=== PATIENT | male | born 1975 | race Caucasian/White ===

== ENCOUNTER 2020-12-14 17:40 | Emergency (ER) | payer OTHER, SELFPAY ==
[2020-12-14 18:00] VITALS: BP 143/85; PULSE 101; RESP 18; TEMP 39; O2SAT 96; BMI 35.2
[2020-12-14 19:51] VITALS: BP 121/68; PULSE 93; RESP 20; O2SAT 94; O2SAT 97
--- NOTE | 2020-12-14 19:58 | XRR_ITS ---
PROCEDURE INFORMATION: Exam: XR Chest Exam date and time: 12/14/2020 7:58 PM Age: 45 years old Clinical indication: Cough and fever; Additional info: Cough fever TECHNIQUE: Imaging protocol: XR of the chest. Views: 1 view. COMPARISON: No relevant prior studies available. FINDINGS: Lungs: Unremarkable. No consolidation. Pleural spaces: Unremarkable. No pleural effusion. No pneumothorax. Heart/Mediastinum: Unremarkable. No cardiomegaly. Bones/joints: Unremarkable. XR/XR chest 1V portable [id number] IMPRESSION: No acute findings.
[2020-12-14 20:27] LABS: Basophils % 0.2 %; Hematocrit 46.6 % (42.0-52.0); Hemoglobin 15.4 g/dL (11.7-16.6); Lymphocytes # 0.9 10^3/uL (0.8-4.8); Lymphocytes % 17.8 %; Mean Corpuscular Hemoglobin 33.1 pg (28.0-34.0); Mean Corpuscular Volume 100.2 fL (80-94); Mean Platelet Volume 10.6 fL (7.4-10.4); Monocytes # 0.4 10^3/uL (0.2-0.9); Monocytes % 8.4 %; Neutrophils # 3.84 10^3/uL (1.8-7.7); Neutrophils % 73.4 %; Nucleated Red Blood Cells % 0 %; Platelet Count 178 10^3/cmm (130-400); Red Blood Count 4.65 10^6/uL (4.1-5.3); White Blood Count 5.2 10^3/uL (4.0-10.0)
[2020-12-14 20:28] VITALS: BP 134/88; PULSE 91; RESP 16; O2SAT 94
[2020-12-14] MEDS: sodium chloride 0.9% 1,000 ML 999 ML IV (20:32)
[2020-12-14] MEDS: acetaminophen 500 mg Tablet 1000 MG PO (20:32)
[2020-12-14 20:34] LABS: Add Urine Microscopic? NO; Charge for UA Resulting for Rev
[2020-12-14 20:36] LABS: Bilirubin Urine Neg (Negative); Blood Urine Neg (Negative); Glucose Urine UA Norm (Normal); Ketones Urine Negative (Negative); Leukocyte Esterase Urine Negative (Negative); Nitrate Urine Negative (Negative); Protein Urine Neg (Negative); Specific Gravity, Urine 1.015 (1.005-1.030); Urine Appearance Clear (CLEAR); Urine Color Yellow (Yellow); Urobilinogen Urine Norm (Negative); pH Urine 5 (5-7)
[2020-12-14 20:42] LABS: Alanine Aminotransferase 36 U/L (0-41); Albumin Level 3.7 g/dL (3.5-5.2); Alkaline Phosphatase 51 IU/L (40-130); Anion Gap 15.9 (5-19); Aspartate Amino Transferase 34 U/L (0-40); Blood Urea Nitrogen 12 mg/dL (6-20); C Reactive Protein 11.6 mg/L (0.0-4.9); Calcium 8.6 mg/dL (8.5-10.5); Carbon Dioxide 23 mmol/L (22-29); Chloride 103 mmol/L (98-107); Globulin 3.4 g/dL (1.3-4.6); Glomerular Filtration Rate 80.4 mL/min (90-130); Glucose 122 mg/dL (65-115); Osmolality Calculated 287 mOsm/kg (285-295); Potassium 3.9 mmol/L (3.5-5.1); Sodium 138 mmol/L (136-145); Total Bilirubin 0.4 mg/dL (0.15-1.2); Total Protein 7.1 g/dL (6.6-8.7)
[2020-12-14 20:48] LABS: Procalcitonin 0.24 ng/mL (0-0.5)
[2020-12-14 20:49] LABS: SARS Covid-2 Antigen Positive (Negative)
[2020-12-14] MEDS: dexamethasone 4 mg/mL INJ 6 MG IVP (21:14)
[2020-12-14 21:20] VITALS: BP 120/73; PULSE 78; RESP 12; TEMP 37.3; O2SAT 92
[2020-12-14 22:28] VITALS: BP 149/95; PULSE 75; RESP 18; O2SAT 96
--- NOTE | 2020-12-15 06:35 | ED_ITS ---
HPI - COVID General: Chief Complaint: COVID symptoms Stated Complaint: sore throat, cough, SOB, N/V Time Seen by Provider: 12/14/20 18:55 Triage information: Has fever, cough or shortness of breath . No known COVID + exposure last 14 days History of Present Illness: HPI Narrative: 45-year-old male who is been sick for several days. He notes a cough and congestion with running fever. He has been placed on Augmentin, which he says made me worse . He began to have some diarrhea following starting this. He otherwise denied any significant medical history. MD complaint: has COVID symptoms Prior covid testing: no COVID 19 common symptoms: positive fever(s), chills, cough, dyspnea, body aches, headache(s), throat pain, nausea and diarrhea; negative vomiting COVID 19 other sytmptoms: positive chest pain; negative chest pressure, requiring oxygen or respiratory distress Onset (ago): day(s) Severity: slowly worsening Pertinent comorbid conditions: hypertension Treatment prior to arrival: acetaminophen and antibiotics COVID Results: SARS-CoV-2 Antigen (Rapid) Positive (Negative) H 12/14/20 19:42 12/14/20 Review of Systems Const: Reports: fever(s), chills and body aches ENMT: Reports: throat pain Card: Reports: chest pain Resp: Reports: dyspnea GI: Reports: nausea and diarrhea; Denies: vomiting Neuro: Reports: headache(s) PFS ED PFSH: Social History Smoking and tobacco status: light tobacco smoker smokeless tobacco Smokeless tobacco user: chewing tobacco Alcohol intake: never Physical Exam Const: GENERAL APPEARANCE: well developed ORIENTATION/CONSCIOUSNESS: Yes oriented to person, Yes oriented to place and Yes oriented to time HENMT: COMMON NORMALS: normocephalic, external ears normal and Normal external nose present HEAD & SCALP: normocephalic FACE & SINUS: normal facial exam NOSE: Normal external nose present and No nasal discharge present EXTERNAL EAR: Yes external ears normal THROAT: peritonsillar mass Eye: COMMON NORMALS: Equal, round and reactive pupils present, EOMs intact bilaterally and conjunctivae normal EYELID: eyelids normal CONJUNCTIVA: Yes conjunctivae normal PUPIL: Yes Equal, round and reactive pupils present Neck/C-Spine: COMMON NORMALS: full ROM GENERAL: No tracheal deviation Chest: COMMONS NORMALS: normal inspection of the chest CHEST: No tenderness Resp: COMMON NORMALS: clear to auscultation bilaterally EFFORT & INSPECTION: Yes tachypneic, No respiratory distress, No retractions, Yes uses accessory muscles and No tracheal deviation AUSCULTATION: clear to auscultation bilaterally, no rhonchi, no wheezes and lung sounds not diminished Cardio: COMMON NORMALS: regular rhythm RATE: tachycardic RHYTHM: regular rhythm HEART SOUNDS: no murmurs PERIPHERAL PULSES: radial pulses present GI: INSPECTION: No abdominal distension AUSCULTATION: No Hyperactive bowel sounds present and No Hypoactive bowel sounds present PALPATION: No Guarding due to palpation present (GI) and No Rigid due to palpation PERCUSSION: no dullness to percussion and no tympanic to percussion Neuro: SENSORIUM/ORIENTATION: Yes oriented to person, Yes oriented to place and Yes oriented to time Psych: COMMON NORMALS: mental status grossly normal Skin: COMMON NORMALS: no rashes or lesions noted GENERAL SKIN EXAM: no rashes or lesions noted Course Vital Signs: Vital signs: Vital Signs Temperature 99.1 F 12/14/20 21:20 Pulse Rate 75 12/14/20 22:28 Respiratory Rate 18 12/14/20 22:28 Blood Pressure 149/95 12/14/20 22:28 Pulse Oximetry 96 12/14/20 22:28 MDM - COVID MDM Narrative: Medical decision making narrative: 45-year-old male with no comorbid conditions. He presents with cough shortness of breath and some diarrhea. His diarrhea may be made worse by the Augmentin. He was told this. CBC is normal. His other blood work is benign. Chest x-ray is negative. He is not requiring oxygen. He'll be discharged on dexamethasone since he is short of breath. Lab Data: Labs: Lab Results 12/14/20 12/14/20 12/14/20 Range/Units 19:42 19:42 19:42 WBC 5.2 (4.0-10.0) 10^3/ uL RBC 4.65 (4.1-5.3) 10^6/u L Hgb 15.4 (11.7-16.6) g/dL Hct 46.6 (42.0-52.0) % MCV 100.2 H (80-94) fL MCH 33.1 (28.0-34.0) pg MCHC 33.0 (30.0-36.0) g/dL RDW 13.0 (12.1-15.1) % Plt Count 178 (130-400) 10^3/c mm MPV 10.6 H (7.4-10.4) fL Neut % (Auto) 73.4 % Lymph % (Auto) 17.8 % Dillon % (Auto) 8.4 % Eos % (Auto) 0.0 % Baso % (Auto) 0.2 % Neut # (Auto) 3.84 (1.8-7.7) 10^3/u L Lymph # (Auto) 0.9 (0.8-4.8) 10^3/u L Dillon # (Auto) 0.4 (0.2-0.9) 10^3/u L Eos # (Auto) 0.0 (0.0-0.8) 10^3/u L Baso # (Auto) 0.0 (0.0-0.1) 10^3/u L Nucleated RBC % (a uto) 0 % Nucleated RBCs # 0.0 /100WBC Sodium 138 (136-145) mmol/L Potassium 3.9 (3.5-5.1) mmol/L Chloride 103 (98-107) mmol/L Carbon Dioxide 23 (22-29) mmol/L Anion Gap 15.9 (5-19) BUN 12 (6-20) mg/dL Creatinine 1.0 (0.7-1.2) mg/dL GFR Calculation 80.4 L (90-130) mL/min Glucose 122 H (65-115) mg/dL Calculated Osmolal ity 287 (285-295) mOsm/k g Calcium 8.6 (8.5-10.5) mg/dL Total Bilirubin 0.4 (0.15-1.2) mg/dL AST 34 (0-40) U/L ALT 36 (0-41) U/L Alkaline Phosphata se 51 (40-130) IU/L C-Reactive Protein 11.6 H (0.0-4.9) mg/L Total Protein 7.1 (6.6-8.7) g/dL Albumin 3.7 (3.5-5.2) g/dL Globulin 3.4 (1.3-4.6) g/dL Procalcitonin 0.24 (0-0.5) ng/mL Urine Color (Yellow) Urine Appearance (CLEAR) Urine pH (5-7) Ur Specific Gravit y (1.005-1.030) Urine Protein (Negative) Urine Glucose (UA) (Normal) Urine Ketones (Negative) Urine Blood (Negative) Urine Nitrate (Negative) Urine Bilirubin (Negative) Urine Urobilinogen (Negative) mg/dL Ur Leukocyte Emily ase (Negative) SARS-CoV-2 Ag (Rap id) Positive H (Negative) 12/14/20 Range/Units 20:24 WBC (4.0-10.0) 10^3/ uL RBC (4.1-5.3) 10^6/u L Hgb (11.7-16.6) g/dL Hct (42.0-52.0) % MCV (80-94) fL MCH (28.0-34.0) pg MCHC (30.0-36.0) g/dL RDW (12.1-15.1) % Plt Count (130-400) 10^3/c mm MPV (7.4-10.4) fL Neut % (Auto) % Lymph % (Auto) % Dillon % (Auto) % Eos % (Auto) % Baso % (Auto) % Neut # (Auto) (1.8-7.7) 10^3/u L Lymph # (Auto) (0.8-4.8) 10^3/u L Dillon # (Auto) (0.2-0.9) 10^3/u L Eos # (Auto) (0.0-0.8) 10^3/u L Baso # (Auto) (0.0-0.1) 10^3/u L Nucleated RBC % (a uto) % Nucleated RBCs # /100WBC Sodium (136-145) mmol/L Potassium (3.5-5.1) mmol/L Chloride (98-107) mmol/L Carbon Dioxide (22-29) mmol/L Anion Gap (5-19) BUN (6-20) mg/dL Creatinine (0.7-1.2) mg/dL GFR Calculation (90-130) mL/min Glucose (65-115) mg/dL Calculated Osmolal ity (285-295) mOsm/k g Calcium (8.5-10.5) mg/dL Total Bilirubin (0.15-1.2) mg/dL AST (0-40) U/L ALT (0-41) U/L Alkaline Phosphata se (40-130) IU/L C-Reactive Protein (0.0-4.9) mg/L Total Protein (6.6-8.7) g/dL Albumin (3.5-5.2) g/dL Globulin (1.3-4.6) g/dL Procalcitonin (0-0.5) ng/mL Urine Color Yellow (Yellow) Urine Appearance Clear (CLEAR) Urine pH 5 (5-7) Ur Specific Gravit y 1.015 (1.005-1.030) Urine Protein Neg (Negative) Urine Glucose (UA) Norm (Normal) Urine Ketones Negative (Negative) Urine Blood Neg (Negative) Urine Nitrate Negative (Negative) Urine Bilirubin Neg (Negative) Urine Urobilinogen Norm (Negative) mg/dL Ur Leukocyte Emily ase Negative (Negative) SARS-CoV-2 Ag (Rap id) (Negative) COVID Results: SARS-CoV-2 Antigen (Rapid) Positive (Negative) H 12/14/20 19:42 12/14/20 Discharge Plan Discharge Patient Disposition: Home Clinical Impression: COVID-19 Condition: Stable Prescriptions: New dexamethasone 6 mg tablet 6 mg PO DAILY Qty: 5 RF: 0 Discontinued amoxicillin-pot clavulanate [Augmentin] 875-125 mg tablet 1 tab PO Q12H 10 Days Qty: 20 RF: 0 Discharge Orders: Discharge ED (Routine); Ordered 12/14/20 Ordered By: Dequan Varela Discharge Diet: Advance as tolerated Discharge Activity: Limit activity as instructed Patient Instructions: Acute Bronchitis (ED) Activity Restrictions/Additional Instructions: Plenty of liquids. Patient is directed. Quarantine at home. Return for worsening shortness of breath despite treatment, inability to control fever with [id number] medications, any other concerning symptoms. Coding Level of Care Code ED Food Order Delivery Runner for Tino Erickson
== END 2020-12-14 22:30 | disposition home or self-care (01) ==
PROVIDERS: Emergency Provider Emergency Medicine
DX: U07.1 COVID-19 (principal); F17.220 Nicotine dependence, chewing tobacco, uncomplicated
CPT/HCPCS: 71045; 80053; 81003; 84145; 85025; 86140; 87426; 96361; 96374; 99284; J1100; J7030

== ENCOUNTER 2020-12-18 09:58 | Inpatient (IN) | payer OTHER, SELFPAY ==
[2020-12-18] VITALS (16 sets, daily range): BP systolic 84–191; BP diastolic 64–120; PULSE 66–126; RESP 16–33; TEMP 36.9–39.6; O2SAT 90–96; BMI 33.5
--- NOTE | 2020-12-18 10:48 | XR_ITS ---
WS: [id number] Portable AP upright chest, 12/18/2020 Clinical Data: dyspnea Comparison: Portable chest, 12/14/2020. Findings: Minimal bilateral patchy opacities have developed since the last chest x-ray. No nodules, m asses or effusions are seen. The heart is enlarged. No pneumothorax is present. The pulmonary vascula rity is not increased. There are monitor leads on the chest wall. XR/XR chest 1V portable [id number] Impression: 1. Minimal bilateral patchy opacities which may represent acute pneumonia. 2. Cardiomegaly.
--- NOTE | 2020-12-18 10:49 | ED_ITS ---
HPI - COVID General: Chief Complaint: Infusion: Covid [facility] Stated Complaint: COVID+ O2 LOW Time Seen by Provider: 12/18/20 10:38 Source: patient Mode of arrival: ambulatory Limitations: no limitations Triage information: Has fever, cough or shortness of breath . Exposure to COVID + person last 14 days History of Present Illness: HPI Narrative: Patient diagnosed with Covid on Tuesday. He states he started having shortness of breath myalgias low-grade fever 6 days ago. Patient states he has had mild increase in shortness of breath since Tuesday. No fever today. complaint: known COVID positive Prior covid testing: yes, results known Prior testing date: 12/14/20 COVID 19 common symptoms: positive fever(s), cough, non-productive cough, dyspnea, fatigue and body aches; negative headache(s), throat pain, nausea or vomiting COVID 19 other sytmptoms: negative chest pain or requiring oxygen Onset (ago): day(s) (6) Severity: mild Pertinent comorbid conditions: obesity Treatment prior to arrival: acetaminophen COVID Results: SARS-CoV-2 Antigen (Rapid) Positive (Negative) H 12/14/20 19:42 12/14/20 Review of Systems Const: Reports: fever(s), body aches and fatigue Eyes: Denies: change in vision ENMT: Denies: throat pain Card: Denies: chest pain or palpitations Resp: Reports: dyspnea and non-productive cough; Denies: stridor GI: Denies: abdominal pain, nausea or vomiting : Denies: flank pain Musc: Reports: back pain; Denies: neck pain Skin/Breast: Denies: rash or pruritus Neuro: Denies: headache(s) or numbness in extremities Psych: Denies: anxiety Avelino/Lymph: Denies: enlarged lymph nodes PFSH ED PFSH: Social History Smoking and tobacco status: light tobacco smoker smokeless tobacco Smokeless tobacco user: chewing tobacco Alcohol intake: never Physical Exam Const: COMMON NORMALS: no acute distress, patient oriented x3, no limitations and well nourished GENERAL APPEARANCE: cooperative NUTRITIONAL APPEARANCE: obese HENMT: COMMON NORMALS: normocephalic and atraumatic HEAD & SCALP: normocephalic and atraumatic FACE & SINUS: normal facial exam MOUTH: Normal oral and palatal mucosa present THROAT: posterior oropharynx normal Eye: COMMON NORMALS: EOMs intact bilaterally Neck/C-Spine: COMMON NORMALS: full ROM, no lymphadenopathy, supple, no meningeal signs and no JVD GENERAL: Yes normal visual inspection Lymph: LYMPHATIC: no lymphadenopathy noted Chest: COMMONS NORMALS: normal inspection of the chest and normal palpation of entire chest wall CHEST: No Ecchymosis present and No rash Resp: COMMON NORMALS: normal respiratory effort, No retractions, No use of accessory muscles and clear to auscultation bilaterally EFFORT & INSPECTION: No respiratory distress AUSCULTATION: clear to auscultation bilaterally Cardio: COMMON NORMALS: no JVD, regular rate, regular rhythm and Peripheral pulses 2+ throughout JUGULAR VENOUS DISTENTION: no JVD RATE: regular rate RHYTHM: regular rhythm PERIPHERAL PULSES: Peripheral pulses 2+ throughout GI: COMMON NORMALS: Normal to inspection, nondistended, normoactive bowel sounds present, Soft to palpation, non-tender and No hepatosplenomegaly present PALPATION: Yes Soft to palpation and Yes No hepatosplenomegaly present : COMMON NORMALS: Yes no CVA tenderness BLADDER/KIDNEY EXAM: Yes no CVA tenderness Back/Pelvis: COMMON NORMALS: no CVA tenderness Extremity: COMMON NORMALS: normal to inspection, full ROM and capillary refill normal Neuro: COMMON NORMALS: patient oriented x3, CN's II-XII intact bilaterally, no focal motor deficits and no sensory deficits noted MENINGEAL SIGNS: Yes no meningeal signs Psych: COMMON NORMALS: mental status grossly normal and Normal thought process present THOUGHT PROCESS: Normal thought process present Skin: COMMON NORMALS: no rashes or lesions noted and no wounds GENERAL SKIN EXAM: no rashes or lesions noted Course Vital Signs: Vital signs: Vital Signs Temperature 99.0 F 12/18/20 10:32 Pulse Rate 103 H 12/18/20 13:00 Respiratory Rate 30 H 12/18/20 13:00 Blood Pressure 191/120 12/18/20 13:00 Pulse Oximetry 96 12/18/20 13:00 MDM - COVID MDM Narrative: Medical decision making narrative: Patient's pulse oximetry is above 92%. Patient and oxygen saturation 93% on room air. Patient would be a good candidate for Covid infusion. 1310: Rechecked the patient to discharge him home. Oxygen level decreased from 93% on room air down to 87 to 88% on room air. He is more tachypneic now. He has decided to stay in the in the hospital due to oxygen requirements. 1350: d/w dr. cardoso hospitalist. Admit to negative pressure room. Start remdesivir and dexamethasone. Also order CT angiogram of the chest. Differential Diagnosis: Differential diagnosis: Likely COVID 19 Lab Data: Attestation: I reviewed the patient's lab results. Labs: Lab Results 12/18/20 12/18/20 Range/Units 10:45 10:45 WBC 14.4 H (4.0-10.0) 10^3/ uL RBC 4.72 (4.1-5.3) 10^6/u L Hgb 15.2 (11.7-16.6) g/dL Hct 46.0 (42.0-52.0) % MCV 97.5 H (80-94) fL MCH 32.2 (28.0-34.0) pg MCHC 33.0 (30.0-36.0) g/dL RDW 13.0 (12.1-15.1) % Plt Count 203 (130-400) 10^3/c mm MPV 10.6 H (7.4-10.4) fL Neut % (Auto) 88.4 % Lymph % (Auto) 7.3 % Rosebud % (Auto) 3.5 % Eos % (Auto) 0.0 % Baso % (Auto) 0.1 % Neut # (Auto) 12.76 H (1.8-7.7) 10^3/u L Lymph # (Auto) 1.1 (0.8-4.8) 10^3/u L Rosebud # (Auto) 0.5 (0.2-0.9) 10^3/u L Eos # (Auto) 0.0 (0.0-0.8) 10^3/u L Baso # (Auto) 0.0 (0.0-0.1) 10^3/u L Nucleated RBC % (a uto) 0 % Nucleated RBCs # 0.0 /100WBC Sodium 139 (136-145) mmol/L Potassium 3.6 (3.5-5.1) mmol/L Chloride 103 (98-107) mmol/L Carbon Dioxide 24 (22-29) mmol/L Anion Gap 15.6 (5-19) BUN 16 (6-20) mg/dL Creatinine 0.8 (0.7-1.2) mg/dL GFR Calculation 104.1 (90-130) mL/min Glucose 136 H (65-115) mg/dL Calculated Osmolal ity 291 (285-295) mOsm/k g Calcium 8.5 (8.5-10.5) mg/dL Imaging Data: CXR: Radiologist's impression: [facility] [place], [place] [address] ReportSigned Patient: Buddy Thompson #: [id number]: [id number]#:[id number]/Sex: 45 / MADM Date: 12/18/20Loc: ERRoom/Bed:Attending Dr: Ordering Provider/Ordering MD: Archie Faulkner MD Date of Service: 12/18/20 Procedure(s): XR chest 1V portable [id number] Accession Number(s): [id number] Report Number: [id number] WS: [id number] Portable AP upright chest, 12/18/2020 Clinical Data: dyspnea Comparison: Portable chest, 12/14/2020. Findings: Minimal bilateral patchy opacities have developed since the last chest x-ray. No nodules, masses or effusions are seen. The heart is enlarged. No pneumothorax is present. The pulmonary vascularity is not increased. There are monitor leads on the chest wall. XR/XR chest 1V portable [id number] Impression: 1. Minimal bilateral patchy opacities which may represent acute pneumonia. 2. Cardiomegaly. Dictated By:Beatriz Merrill MDSigned By:Beatriz Merrill MDSigned Date/Time:12/18/20 1101 COVID Results: SARS-CoV-2 Antigen (Rapid) Positive (Negative) H 12/14/20 19:42 12/14/20 Critical Care Time 2 Critical Care Time: Critical Care Time: Yes Total Critical Care Time: 45 Attestation: Hypoxia, tachypnea. See orders. Discharge Plan Discharge Patient Disposition: Admitted As Inpatient Clinical Impression: COVID-19, Hypoxia Dyspnea Qualifiers: Dyspnea type: shortness of breath Qualified Code(s): R06.02 - Shortness of breath Condition: Stable Coding Level of Care Code ED Organ Recovery Coordinator for Chg Fwd Exam Comprehensive
[2020-12-18 10:59] LABS: Basophils % 0.1 %; Hemoglobin 15.2 g/dL (11.7-16.6); Lymphocytes # 1.1 10^3/uL (0.8-4.8); Lymphocytes % 7.3 %; Mean Corpuscular Hemoglobin 32.2 pg (28.0-34.0); Mean Corpuscular Volume 97.5 fL (80-94); Mean Platelet Volume 10.6 fL (7.4-10.4); Monocytes # 0.5 10^3/uL (0.2-0.9); Monocytes % 3.5 %; Neutrophils # 12.76 10^3/uL (1.8-7.7); Neutrophils % 88.4 %; Nucleated Red Blood Cells % 0 %; Platelet Count 203 10^3/cmm (130-400); Red Blood Count 4.72 10^6/uL (4.1-5.3); White Blood Count 14.4 10^3/uL (4.0-10.0)
[2020-12-18 11:10] LABS: Anion Gap 15.6 (5-19); Blood Urea Nitrogen 16 mg/dL (6-20); Calcium 8.5 mg/dL (8.5-10.5); Carbon Dioxide 24 mmol/L (22-29); Chloride 103 mmol/L (98-107); Creatinine Clr Calc Pharmacy 149.1186; Glomerular Filtration Rate 104.1 mL/min (90-130); Glucose 136 mg/dL (65-115); Osmolality Calculated 291 mOsm/kg (285-295); Potassium 3.6 mmol/L (3.5-5.1); Sodium 139 mmol/L (136-145)
--- NOTE | 2020-12-18 13:52 | CTR_ITS ---
PROCEDURE INFORMATION: Exam: CTA Chest With Contrast Exam date and time: 12/18/2020 1:52 PM Age: 45 years old Clinical indication: Shortness of breath; Additional info: Shortness of breath, covid + TECHNIQUE: Imaging protocol: Computed tomographic angiography of the chest with contrast. 3D rendering (Not supervised by radiologist): MIP and/or 3D reconstructed images were created by the technologist. Radiation optimization: All CT scans at this facility use at least one of these dose optimization techniques: automated exposure control; mA and/or kV adjustment per patient size (includes targeted exams where dose is matched to clinical indication); or iterative reconstruction. Contrast material: OMNI 350; Contrast volume: 75 ml; Contrast route: INTRAVENOUS (IV); COMPARISON: CR XR chest 1V portable [id number] 12/18/2020 10:49 AM RADIATION DOSE METRICS: Total DLP (mGy-cm): 627.73 FINDINGS: Pulmonary arteries: Normal. No pulmonary emboli. Aorta: Unremarkable. No aortic aneurysm. No aortic dissection. Lungs: Scattered patchy irregular ground-glass lesions widely distributed throughout both lungs. No endobronchial lesion. No significant septal thickening. No fibrosis. No bronchiectasis. Pleural spaces: Unremarkable. No pneumothorax. No pleural effusion. Heart: Unremarkable. No cardiomegaly. No pericardial effusion. Lymph nodes: Unremarkable. No enlarged lymph nodes. Bones/joints: Unremarkable. No acute fracture. Soft tissues: Unremarkable. CT/CT angio chest PE protcl [id number] IMPRESSION: 1. Negative for pulmonary embolism. 2. Patchy scattered nonspecific ground-glass airspace disease throughout both lungs. 3. Commonly reported imaging features of COVID-19 pneumonia are present. Other processes such as influenza pneumonia and organizing pneumonia, as can be seen with drug toxicity and connective tissue disease, can cause a similar imaging pattern. (Reference: Bong) REFERENCES: Bong Miguel, et al., Radiological Society of [place] Expert Consensus Statement on Reporting Chest CT Findings Related to COVID-19. Endorsed by the Society of Thoracic Radiology, the [place] [employer], and RSNA. Published September 12, 2019. Radiation Dose CTDIVOL = (mGy): DLP = 627.73 (mGy-cm)
[2020-12-18] MEDS: dexamethasone 10 mg/mL INJ IVP (14:09)
--- NOTE | 2020-12-18 14:26 | USCV_ITS ---
Buddy Thompson Age: 45 Gender: M : 1975 Exam Date: 12/18/2020 15:44 Ordering Phys: Tyler Reno MD Technologist: Denys Broussard Exam Location: [facility] – [place] Indication: chest pain BP: 145 / 84 HR: 102 Rhythm: Sinus Technical Quality: Technically difficult study MEASUREMENTS (Male / Female) Normal Values 2D ECHO LV Diastolic Diameter PLAX 4.8 cm 4.2 - 5.9 / 3.9 - 5.3 cm LV Systolic Diameter PLAX 2.5 cm IVS Diastolic Thickness 1.1 cm 0.6 - 1.0 / 0.6 - 0.9 cm IVS Systolic Thickness 1.5 cm LVPW Diastolic Thickness 1.1 cm 0.6 - 1.0 / 0.6 - 0.9 cm LVPW Systolic Thickness 1.4 cm LVOT Diameter 2.1 cm LV Ejection Fraction 2D Teich 78.9 % LA Diameter 2.8 cm LA Width 4.1 cm LA Height 5.5 cm RA Width 3.4 cm RA Height 5.9 cm Aorta at Sinotubular Diameter 3.3 cm M-MODE LV Diastolic Diameter MM 4.8 cm 4.2 - 5.9 / 3.9 - 5.3 cm LV Systolic Diameter MM 2.5 cm LV Ejection Fraction MM Teich 78.7 % IVS Diastolic Thickness MM 0.9 cm 0.6 - 1.0 / 0.6 - 0.9 cm IVS Systolic Thickness MM 2.0 cm LVPW Diastolic Thickness MM 1.4 cm 0.6 - 1.0 / 0.6 - 0.9 cm LVPW Systolic Thickness MM 2.0 cm RV Diastolic Diameter MM 2.4 cm DOPPLER AV Peak Velocity 119.0 cm/s LVOT Peak Velocity 81.0 cm/s AV Area Cont Eq vti 2.3 cm squared AV Area Cont Eq pk 2.3 cm squared MV Area PHT 5.0 cm squared Mitral E to A Ratio 1.1 MV E' Velocity 36.0 cm/s Mitral E to MV E' Ratio 7.7 Mitral E to LV E' Lateral Ratio 7.0 Mitral E to LV E' Septal Ratio 8.7 TR Peak Velocity 121.0 cm/s TR Peak Gradient 5.9 mmHg TV Peak E Velocity 82.0 cm/s Right Atrial Pressure 3.0 mmHg Pulmonary Artery Systolic Pressu 8.9 mmHg FINDINGS Left Ventricle Technically limited study because of poor ultrasonic windows. Normal left ventricular size. Grossly LV systolic function is normal. Regional wall motion abnormalities cannot be assessed because of poor visualization. Right Ventricle The right ventricle is normal in size and function. Right Atrium Grossly normal Left Atrium Grossly normal Mitral Valve Grossly normal Aortic Valve Not well-visualized however no significant stenosis or regurgitation is seen. Tricuspid Valve Not well-visualized Pulmonic Valve Not visualized Pericardium Normal pericardium without effusion. Aorta Normal ascending aorta dimension. CONCLUSIONS This is technically limited quality study because of poor windows. LV systolic function is grossly normal. Regional wall motion abnormalities cannot be assessed because of poor visualization. Valves are not well visualized however no significant abnormality is seen. No comparison studies are available Enrique Burris MD (Electronically Signed) Final Date: 19 December 2020 10:55 S
[2020-12-18] MEDS: remdesivir 200 MG in sodium chloride 0.9% (100 ml) 100 ML 100 MG IV (14:50)
[2020-12-18 15:01] LABS: Iron 27 ug/dL (59-158); Percent Saturation 14.3 % (20-50); Total Iron Binding Capacity 188 mcg/dl; Unsaturated Iron Binding 161 ug/dL (112-347)
--- NOTE | 2020-12-18 15:02 | P.HP_ITS ---
Providers/Chief Complaint Admitting Physician: Tyler Reno MD Chief Complaint: COVID+ O2 LOW 86 History of Present Illness Buddy Thompson is a 45 year old male no severe past medical history came to the ER today after having difficulty in breathing for last 1 week. Patient states he had cough, runny nose and fever on and off for last 3 weeks. He last went to work last Tuesday. Today is . He states for last 3 days his difficulty in breathing has been getting worse and he was tested positive for Covid on Tuesday. He has not been vaccinated against COVID-19. In the ER patient got a dose of BAM. As per the ER physician while he was being monitored post the dose within 30 minutes patient started getting more respi ratory distress going up to 3 L of nasal cannula. On my examination patient was tachypneic and tachycardic saturating 88% on 6 L nasal cannula and I have requested a heated high flow. Review of Systems General: Reports: 10 or more systems reviewed and unremarkable except in HPI and below Const: Denies: fever(s), chills, body aches, change in appetite, change in weight, malaise, night sweats, diaphoresis, change in sleep pattern, daytime sleepiness or snoring Eyes: Denies: change in vision, blurry vision, photophobia, eye discomfort or eye discharge ENMT: Denies: throat pain, enlarged tonsils, hoarseness, mouth pain, oral s ores, dry mouth, tinnitus, nasal congestion or post nasal drip Card: Denies: chest pain, palpitations, irregular heart rhythm, edema, swelling of feet/ankles, lightheadedness, syncope, pre-syncope, dyspnea on exertion, orthopnea, leg pain with exertion or acrocyanosis Resp: Denies: dyspnea, productive cough, non-productive cough, wheezing, stridor, pain on inspiration, change in phlegm color, hemoptysis or chest congestion GI: Denies: abdominal pain, nausea, vomiting, hematemesis, coffee ground emesis, dysphagia, heartburn, diarrhea, constipation, bloating, GI cramping, change in bowel habits, pain on defecation, hematochezia or melena : Denies: flank pain, difficulty urinating, dysuria, urinary frequency, urinary urgency, urinary hesitancy, urinary dribbling, difficulty starting urination, change in urine stream, nocturia or hematuria Musc: Denies: neck pain, back pain, extremity pain, joint pain, joint swell ing, joint redness, joint stiffness or limited range of motion Neuro: Denies: headache(s), numbness in extremities, weakness in extremities, sensory changes, lack of coordination, difficulty walking, frequent falls, dizziness, vertigo, confusion, Slurred speech present, difficulty communicating thoughts or seizure-like activity Psych: Denies: anxiety, depression, mood swings, panic attacks, hopelessness or irritability Endo: Denies: polyuria, polydipsia, tired all the time, cold intolerance, excessive sweating, flushing or heat intolerance Avelino/Lymph: Denies: easy bruising or easy bleeding All/Imm: Denies: tongue swelling, facial swelling or acute wheezing Medications/Allergies Home Medications Medication Instructions Recorded Confirmed Last Taken Type dexamethasone 6 mg PO DAILY #5 tab 12/14/20 12/18/20 12/18/20 Rx Allergies Allergy/AdvReac Type Severity Reaction Status Date / Time No Known Allergies Allergy Verified 12/12/20 15:54 PFSH Acute PFSH: Medical History (Updated 12/18/20 @ 15:06 by Tyler Reno MD) No significant past medical history Surgical History (Updated 12/18/20 @ 15:06 by Tyler Reno MD) No significant past surgical history Family History (Updated 12/18/20 @ 15:06 by Tyler Reno MD) Denies family history of CAD (coronary artery disease) Cancer Social History (Updated 12/18/20 @ 15:06 by Tyler Reno MD) Smoking and tobacco status: light tobacco smoker smokeless tobacco Smokeless tobacco user: chewing tobacco Alcohol intake: never Substance/Drug Use: never Household members: spouse Housing: House Vitals/I&O/Wt Last Vital Signs Temp 103.3 F H 12/18/20 14:50 Pulse 104 H 12/18/20 14:50 Resp 30 H 12/18/20 14:50 BP 157/96 12/18/20 14:50 Pulse Ox 90 12/18/20 14:50 12/18/20 12/18/20 12/18/20 06:59 14:59 22:59 Intake Total 60 / 60 Balance 60 / 60 Weight last 48 hrs Weight 112.037 kg Physical Exam Narrative: EXAM NARRATIVE: General: No acute distress, AO x3 HEENT: PERRLA, pupils bilaterally equal and reactive Chest: Bronchial breath sounds all over the lung sales, rhonchi diffuse all over the lung sales no added sounds, equal good air entry bilaterally CVS: S1-S2 regular, no murmurs, no tachycardia, no gallops, no rubs Abdomen: Soft, nontender, no organomegaly, bowel sounds present Neuro: No focal deficits, no facial deformity, AO x3, power 5/5 in all limbs Data : 12/18/20 10:45 12/18/20 10:45 Micro: Microbiology 12/18/20 11:13 Blood Culture - Preliminary Blood SPECIMEN COLLECTED 12/18/20 11:13 Blood Culture - Preliminary Blood SPECIMEN COLLECTED A&P Assessment and plan (1) Hypoxia: Status: Acute (2) COVID-19: Status: Acute Additional A&P Information COVID-19 pneumonia: At least moderate to severe disease. Check ABG to check for PF ratio. Check CTA PE to rule out pulmonary embolism. Start patient on full dose Lovenox and 1 mg/kg body weight every 12 hourly as per creatinine clearance. IV dexamethasone 6 mg stat followed by daily dose. Antiviral treatment with remdesivir as per protocol. Vitamin C, zinc. Advair, Spiriva. Tessalon Perles for cough. Pulmonary toilet with incentive spirometry and flutter valve. Check procalcitonin, sputum culture, blood culture, lactate, MRSA swab, urine Legionella antigen, urine bacterial antigen, flu swab. Low probability of bacterial infection for now. Start patient on azithromycin for atypical pneumonia 500 mg oral. Check inflammatory markers including LDH, fibrinogen, D-dimer, ferritin, CRP, ESR. Depending on the inflammatory markers will decide about dose of Actemra. IV Tylenol for fever. Full code. Regular diet. Attestations Medical Necessity Statement*: Admission for more than 2 midnights for moderate to severe COVID-19 pneumonia. Critical Care Time: The high probability of a clinically significant, sudden or life threatening deterioration of the patient's [respiratory] system(s) required my full and direct attention, intervention and personal management. The critical care time is as shown. This time is in addition to time spent performing any reported procedures but includes the following: [x] Data and vital sign review and interpretation [x] Patient assessment, examination and intervention [x] Documentation [x] Medication orders and management Critical Care Time (min): 80 Coding Level of Care Code Acute Horticultural Therapist for Radhag Fwd Diagnoses Hypoxia R09.02 COVID-19 U07.1
[2020-12-18 15:12] LABS: ABG PCO2 25.7 mmHg (35-45); ABG PH Result 7.55 (7.35-7.45); Alveolar-Arterial Oxygen Gradi 29.3 mmHg (5-10); Arterial Blood Gas Hematocrit 48.1 % (42-52); Base Excess ABG 1.9 mmol/L (-2.0-2.0); Blood Gas Allen Test Pos; Blood Gas Operator Identificat AMH; Blood Gas Sample Site Radial, right; Blood Gas Sample Type Arterial; Carboxyhemoglobin 0.9 %THgb (0.4-20.1); HCO3 ABG 22.6 mmol/L (22-26); HGB O2 Sat 91.4 % (95-100); Ionized Calcium Level - ABG 1.1 mmol/L (1.1-1.4); Methemoglobin 0.8 % (0.4-1.5); Oxygen Device NC; Oxygen Saturation ABG 92.9; PO2 ABG 53.7 mmHg (80.0-100.0); Potassium Level - ABG 3.2 mmol/L (3.5-5.0); Total Hemoglobin 15.7 g/dL (14-18)
[2020-12-18 15:13] LABS: NT Pro B Type Natriuretic Pept 151 pg/mL (0-125); Procalcitonin 0.08 ng/mL (0-0.5); Thyroid Stimulating Hormone 0.66 uIU/mL (0.27-4.20)
[2020-12-18] MEDS: benzonatate 100 mg Capsule PO (15:13)
[2020-12-18] MEDS: acetaminophen 1,000 MG/100 ML PIGGYBACK 400 MG IV (15:13)
[2020-12-18] MEDS: famotidine 20 mg/2 mL INJ IVP (15:13)
[2020-12-18 15:24] LABS: C Reactive Protein 85.8 mg/L (0.0-4.9); Creatine Phosphokinase 98 U/L (39-308); Lactate Dehydrogenase 344 U/L (135-225)
[2020-12-18] MEDS: enoxaparin 120 mg/0.8 mL Syringe 110 MG SUBCUT (15:31)
[2020-12-18 15:37] LABS: Ferritin 1874 ng/mL (30-400)
[2020-12-18 15:58] LABS: Lactic Sepsis W/Reflex 1.8 mmol/L (0.5-2.2)
[2020-12-18 15:59] LABS: Potassium, Radom Urine 25 mmol/L; Urine Random Chloride 61 mmol/L; Urine Random Sodium 69 mmol/L
[2020-12-18] MEDS: iohexol 350 mg/mL 100 mL Btl IV (16:05)
[2020-12-18 16:10] LABS: Influenza A by IFA Negative (Negative); Influenza B by IFA Negative (Negative)
[2020-12-18 16:55] LABS: D Dimer 0.69 ug/mIFEU (0-0.59); Fibrinogen 598 mg/dL (174-498)
--- NOTE | 2020-12-18 19:02 | PC.NURSE ---
REport from JESUS Vargas
[2020-12-19] VITALS (101 sets, daily range): BP systolic 102–148; BP diastolic 54–94; PULSE 44–90; RESP 9–38; TEMP 36.4–36.8; O2SAT 83–96
[2020-12-19] MEDS: sodium chloride 0.9% 1,000 ML 50 ML IV ×2 (02:03→19:28)
[2020-12-19] MEDS: benzonatate 100 mg Capsule PO ×4 (02:07→19:27)
[2020-12-19] MEDS: acetaminophen 1,000 MG/100 ML PIGGYBACK 400 MG IV ×2 (02:07→10:49)
[2020-12-19] MEDS: enoxaparin 120 mg/0.8 mL Syringe 110 MG SUBCUT ×2 (03:32→15:56)
[2020-12-19] MEDS: famotidine 20 mg/2 mL INJ IVP ×2 (03:33→15:56)
[2020-12-19 04:04] LABS: Basophils % 0.2 %; Hematocrit 42.6 % (42.0-52.0); Hemoglobin 14.4 g/dL (11.7-16.6); Lymphocytes % 6.7 %; Mean Corpuscular HGB Conc 33.8 g/dL (30.0-36.0); Mean Corpuscular Volume 97.5 fL (80-94); Mean Platelet Volume 10.6 fL (7.4-10.4); Monocytes # 0.9 10^3/uL (0.2-0.9); Monocytes % 5.7 %; Neutrophils # 12.86 10^3/uL (1.8-7.7); Neutrophils % 86.1 %; Nucleated Red Blood Cells % 0 %; Platelet Count 232 10^3/cmm (130-400); Red Blood Count 4.37 10^6/uL (4.1-5.3); Red Cell Distribution Width 13.2 % (12.1-15.1); White Blood Count 14.9 10^3/uL (4.0-10.0)
[2020-12-19 04:13] LABS: Fibrinogen 642 mg/dL (174-498)
[2020-12-19 04:16] LABS: D Dimer 0.55 ug/mIFEU (0-0.59)
[2020-12-19 04:35] LABS: Alanine Aminotransferase 17 U/L (0-41); Albumin Level 2.9 g/dL (3.5-5.2); Alkaline Phosphatase 45 IU/L (40-130); Aspartate Amino Transferase 19 U/L (0-40); Blood Urea Nitrogen 20 mg/dL (6-20); Carbon Dioxide 23 mmol/L (22-29); Chloride 105 mmol/L (98-107); Chol HDL Ratio 4.07 mg/dL (1.0-5.00); Cholesterol 183 mg/dL (0-200); Creatine Phosphokinase 90 U/L (39-308); Creatinine Clr Calc Pharmacy 149.1186; Globulin 3.6 g/dL (1.3-4.6); Glomerular Filtration Rate 104.1 mL/min (90-130); Glucose 149 mg/dL (65-115); HDL Cholesterol 45 mg/dL (60-100); LDL Cholesterol Calculated 118 mg/dL (50-129); Lactate Dehydrogenase 330 U/L (135-225); NT Pro B Type Natriuretic Pept 216 pg/mL (0-125); Osmolality Calculated 291 mOsm/kg (285-295); Sodium 138 mmol/L (136-145); Total Bilirubin 0.5 mg/dL (0.15-1.2); Total Protein 6.5 g/dL (6.6-8.7); Triglycerides 98 mg/dL (0-150); VLDL Cholestrol Calculation 20 mg/dL (0-30)
[2020-12-19 04:48] LABS: Ferritin 2142 ng/mL (30-400)
[2020-12-19 04:52] LABS: Estmated Average Glucose 120; Hemoglobin A1C 5.8 % (4.0-6.0)
--- NOTE | 2020-12-19 06:00 | XR_ITS ---
WS: [id number] Portable AP upright chest, 12/19/2020 Clinical Data: covid Comparison: Portable chest, 12/18/2020 Findings: The bilateral opacities remain the same. No nodules, masses or effusions are seen. The hear t is enlarged. The pulmonary vascularity is not increased. No pneumothorax is seen. Monitor leads on the chest wall. XR/XR chest 1V portable [id number] Impression: No change in bilateral pulmonary opacities.
[2020-12-19 07:09] LABS: Add Urine Culture? No; Bacteria Urine TRACE /hpf; Bilirubin Urine Neg (Negative); Blood Urine Neg (Negative); Glucose Urine UA Norm (Normal); Ketones Urine Negative (Negative); Leukocyte Esterase Urine Negative (Negative); Mucus Urine 1+ /hpf; Nitrate Urine Negative (Negative); Protein Urine Trace (Negative); Specific Gravity, Urine 1.015 (1.005-1.030); Squamous Epithelial Cell Urine 0-4 /hpf (0-5); Urine Appearance Clear (CLEAR); Urine Color Yellow (Yellow); Urobilinogen Urine Norm (Negative); WBC Urine 0-4 /hpf (0-5); pH Urine 5 (5-7)
--- NOTE | 2020-12-19 07:42 | PC.RESP ---
SMOKING CESSATION INFORMATION SENT TO PATIENT.
[2020-12-19] MEDS: ferrous gluconate 324 mg Tablet PO ×2 (08:16→17:45)
[2020-12-19] MEDS: ascorbic acid 500 mg Tablet 1000 MG PO ×2 (08:16→17:45)
[2020-12-19] MEDS: zinc gluconate 50 mg Tablet PO (08:16)
--- NOTE | 2020-12-19 10:50 | ECG_ITS ---
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 Measurements Intervals [place] Rate: 56 P: 59 NM: 181 QRS: 38 QRSD: 112 T: 8 QT: 423 QTc: 410 Interpretive Statements ELECTRONIC VENTRICULAR PACEMAKER No previous ECG available for comparison Electronically Signed On 12-19-2020 21:38:00 CDT by Enrique Burris M.D. [id number]
--- NOTE | 2020-12-19 11:05 | P.PN_ITS ---
Subjective Subjective: Interval history: No events overnight. On examination patient lying tired appearing. He states he sat up in chair for breakfast. Discussed in detail that patient would need to do incentive spirometry and flutter valve regularly. Also discussed with patient would benefit from early ambulation transfers up in chair for as long as possible. Discussed that patient would be in hospital for at least 5 days to finish of remdesivir course and going forward depending on how much oxygen supplementation he would need. Patient verbalized understanding. Denies any nausea vomiting, headache. States he is feeling better than yesterday. Currently on 45 L 45% saturating 92%. Vitals/I&O/Wt Last Vital Signs Temp 97.7 F 12/19/20 10:00 Pulse 60 12/19/20 09:30 Resp 24 H 12/19/20 09:15 BP 112/73 12/19/20 09:30 Pulse Ox 89 L 12/19/20 09:30 12/18/20 12/19/20 12/19/20 22:59 06:59 14:59 Intake Total 200 / 260 100 / 360 500 / 500 Output Total 425 / 425 Balance 200 / 260 -325 / -65 500 / 500 Weight last 48 hrs Weight 113.988 kg Weight 112.037 kg Physical Exam Narrative: EXAM NARRATIVE: General: No acute distress, AO x3 HEENT: PERRLA, pupils bilaterally equal and reactive Chest: Bronchial breath sounds all over the lung sales, rhonchi diffuse all over the lung sales no added sounds, equal good air entry bilaterally CVS: S1-S2 regular, no murmurs, no tachycardia, no gallops, no rubs Abdomen: Soft, nontender, no organomegaly, bowel sounds present Neuro: No focal deficits, no facial deformity, AO x3, power 5/5 in all limbs Data : 12/19/20 03:45 12/19/20 03:45 Other Labs: Laboratory Results WBC 14.9 10^3/uL (4.0-10.0) H 12/19/20 03:45 RBC 4.37 10^6/uL (4.1-5.3) 12/19/20 03:45 Hgb 14.4 g/dL (11.7-16.6) 12/19/20 03:45 Hct 42.6 % (42.0-52.0) 12/19/20 03:45 MCV 97.5 fL (80-94) H 12/19/20 03:45 MCH 33.0 pg (28.0-34.0) 12/19/20 03:45 MCHC 33.8 g/dL (30.0-36.0) 12/19/20 03:45 RDW 13.2 % (12.1-15.1) 12/19/20 03:45 Plt Count 232 10^3/cmm (130-400) 12/19/20 03:45 MPV 10.6 fL (7.4-10.4) H 12/19/20 03:45 Neut % (Auto) 86.1 % 12/19/20 03:45 Lymph % (Auto) 6.7 % 12/19/20 03:45 [place] % (Auto) 5.7 % 12/19/20 03:45 Eos % (Auto) 0.0 % 12/19/20 03:45 Baso % (Auto) 0.2 % 12/19/20 03:45 Neut # (Auto) 12.86 10^3/uL (1.8-7.7) H 12/19/20 03:45 Lymph # (Auto) 1.0 10^3/uL (0.8-4.8) 12/19/20 03:45 [place] # (Auto) 0.9 10^3/uL (0.2-0.9) 12/19/20 03:45 Eos # (Auto) 0.0 10^3/uL (0.0-0.8) 12/19/20 03:45 Baso # (Auto) 0.0 10^3/uL (0.0-0.1) 12/19/20 03:45 Nucleated RBC % (auto) 0 % 12/19/20 03:45 Nucleated RBCs # 0.0 /100WBC 12/19/20 03:45 Fibrinogen 642 mg/dL (174-498) H 12/19/20 03:45 D-Dimer 0.55 ug/mIFEU (0-0.59) 12/19/20 03:45 Specimen Type Arterial 12/18/20 15:00 Sample Site Radial, right 12/18/20 15:00 ABG pH 7.55 (7.35-7.45) H 12/18/20 15:00 ABG pCO2 25.7 mmHg (35-45) L 12/18/20 15:00 ABG pO2 53.7 mmHg (80.0-100.0) L 12/18/20 15:00 ABG HCO3 22.6 mmol/L (22-26) 12/18/20 15:00 ABG O2 Saturation 92.9 12/18/20 15:00 ABG Base Excess 1.9 mmol/L (-2.0-2.0) 12/18/20 15:00 Jonel Test Pos 12/18/20 15:00 A-a O2 Gradient 29.3 mmHg (5-10) H 12/18/20 15:00 Hematocrit 48.1 % (42-52) 12/18/20 15:00 Hgb O2 Saturation 91.4 % (95-100) L 12/18/20 15:00 Carboxyhemoglobin 0.9 %THgb (0.4-20.1) 12/18/20 15:00 Methemoglobin 0.8 % (0.4-1.5) 12/18/20 15:00 Total Hemoglobin 15.7 g/dL (14-18) 12/18/20 15:00 Sodium 142.0 mmol/L (131-143) 12/18/20 15:00 Potassium 3.2 mmol/L (3.5-5.0) L 12/18/20 15:00 Glucose 110.0 mg/dL (70-115) 12/18/20 15:00 Ionized Calcium 1.1 mmol/L (1.1-1.4) 12/18/20 15:00 O2 Delivery Device Nc 12/18/20 15:00 O2 Liters/Min 6.0 % 12/18/20 15:00 FiO2 44.0 % 12/18/20 15:00 Loft Patternmaker ID Amh 12/18/20 15:00 Sodium 138 mmol/L (136-145) 12/19/20 03:45 Potassium 4.0 mmol/L (3.5-5.1) 12/19/20 03:45 Chloride 105 mmol/L (98-107) 12/19/20 03:45 Carbon Dioxide 23 mmol/L (22-29) 12/19/20 03:45 Anion Gap 14.0 (5-19) 12/19/20 03:45 BUN 20 mg/dL (6-20) 12/19/20 03:45 Creatinine 0.8 mg/dL (0.7-1.2) 12/19/20 03:45 GFR Calculation 104.1 mL/min (90-130) 12/19/20 03:45 Glucose 149 mg/dL (65-115) H 12/19/20 03:45 Estimat Average Glucose 120 12/19/20 03:45 Hemoglobin A1c 5.8 % (4.0-6.0) 12/19/20 03:45 Calculated Osmolality 291 mOsm/kg (285-295) 12/19/20 03:45 Lactic Acid 1.8 mmol/L (0.5-2.2) 12/18/20 15:16 Calcium 8.0 mg/dL (8.5-10.5) L 12/19/20 03:45 Magnesium 2.0 mg/dL (1.7-2.3) 12/18/20 10:45 Iron 27 ug/dL (59-158) L 12/18/20 10:45 TIBC 188 mcg/dl 12/18/20 10:45 % Saturation 14.3 % (20-50) L 12/18/20 10:45 Unsat Iron Binding 161 ug/dL (112-347) 12/18/20 10:45 Ferritin 2142 ng/mL (30-400) H 12/19/20 03:45 Total Bilirubin 0.5 mg/dL (0.15-1.2) 12/19/20 03:45 AST 19 U/L (0-40) 12/19/20 03:45 ALT 17 U/L (0-41) 12/19/20 03:45 Alkaline Phosphatase 45 IU/L (40-130) 12/19/20 03:45 Lactate Dehydrogenase 330 U/L (135-225) H 12/19/20 03:45 Creatine Kinase 90 U/L (39-308) 12/19/20 03:45 C-Reactive Protein 85.8 mg/L (0.0-4.9) H 12/18/20 10:45 NT-Pro-B Natriuret Pep 216 pg/mL (0-125) H 12/19/20 03:45 Total Protein 6.5 g/dL (6.6-8.7) L 12/19/20 03:45 Albumin 2.9 g/dL (3.5-5.2) L 12/19/20 03:45 Globulin 3.6 g/dL (1.3-4.6) 12/19/20 03:45 Triglycerides 98 mg/dL (0-150) 12/19/20 03:45 Cholesterol 183 mg/dL (0-200) 12/19/20 03:45 LDL Cholesterol, Calc 118 mg/dL (50-129) 12/19/20 03:45 Total VLDL Cholesterol 20 mg/dL (0-30) 12/19/20 03:45 HDL Cholesterol 45 mg/dL (60-100) L 12/19/20 03:45 Cholesterol/HDL Ratio 4.07 mg/dL (1.0-5.00) 12/19/20 03:45 Procalcitonin 0.08 ng/mL (0-0.5) 12/18/20 10:45 TSH 0.66 uIU/mL (0.27-4.20) 12/18/20 10:45 Urine Color Yellow (Yellow) 12/19/20 06:20 Urine Appearance Clear (CLEAR) 12/19/20 06:20 Urine pH 5 (5-7) 12/19/20 06:20 Ur Specific [place] 1.015 (1.005-1.030) 12/19/20 06:20 Urine Protein Trace (Negative) 12/19/20 06:20 Urine Glucose (UA) Norm (Normal) 12/19/20 06:20 Urine Ketones Negative (Negative) 12/19/20 06:20 Urine Blood Neg (Negative) 12/19/20 06:20 Urine Nitrate Negative (Negative) 12/19/20 06:20 Urine Bilirubin Neg (Negative) 12/19/20 06:20 Urine Urobilinogen Norm mg/dL (Negative) 12/19/20 06:20 Ur Leukocyte Esterase Negative (Negative) 12/19/20 06:20 Urine RBC None /hpf (0-2) 12/19/20 06:20 Urine WBC 0-4 /hpf (0-5) H 12/19/20 06:20 Ur Squamous Epith Cells 0-4 /hpf (0-5) H 12/19/20 06:20 Amorphous Sediment Not Reportable 12/19/20 06:20 Urine Bacteria Trace /hpf (NONE) 12/19/20 06:20 Urine Mucus 1+ /hpf 12/19/20 06:20 Ur Random Sodium 69 mmol/L 12/18/20 14:40 Ur Random Potassium 25 mmol/L 12/18/20 14:40 Ur Random Chloride 61 mmol/L 12/18/20 14:40 Influenza Type A Ag Negative (Negative) 12/18/20 14:40 Influenza Type B Ag Negative (Negative) 12/18/20 14:40 Impressions Chest CTA 12/18/20 13:52 IMPRESSION: 1. Negative for pulmonary embolism. 2. Patchy scattered nonspecific ground-glass airspace disease throughout both lungs. 3. Commonly reported imaging features of COVID-19 pneumonia are present. Other processes such as influenza pneumonia and organizing pneumonia, as can be seen with drug toxicity and connective tissue disease, can cause a similar imaging pattern. (Reference: Bong) REFERENCES: Bong Miguel et al., Radiological Society of [place] Expert Consensus Statement on Reporting Chest CT Findings Related to COVID-19. Endorsed by the Society of Thoracic Radiology, the [place] [employer], and RSNA. Published September 12, 2019. Radiation Dose CTDIVOL = (mGy): DLP = 627.73 (mGy-cm) Chest X-Ray 12/19/20 06:00 Impression: No change in bilateral pulmonary opacities. Micro: Microbiology 12/18/20 14:40 MRSA Culture - Final Nose 12/19/20 06:15 Gram Stain - Final Sputum - Expectorated Sputum 12/18/20 11:13 Blood Culture - Preliminary Blood Gram positive cocci 12/18/20 14:40 Bacterial Antigens - Final Urine Kidney 12/18/20 14:40 Legionella Urinary Antigen - Final Urine,Voided 12/18/20 11:13 Blood Culture - Preliminary Blood SPECIMEN COLLECTED A&P Assessment and plan (1) ARDS (adult respiratory distress syndrome): Status: Acute (2) COVID-19: Status: Acute (3) Bradycardia: Status: Acute Additional A&P Information COVID-19 pneumonia: At least moderate to severe disease. CTA PE ruled out pulmonary embolism. Continue with full dose Lovenox for now. Most likely patient will require anticoagulation for 14 days post discharge. Continue with IV remdesivir to finish a 5-day course. IV dexamethasone 6 mg daily. Patient's inflammatory markers worsening with elevated fibrinogen, ferritin. We will give 1 dose of Actemra. Check EKG for QTC and bradycardia. Vitamin C, zinc. Advair, Spiriva. Tessalon Perles for cough. Pulmonary toilet with incentive spirometry and flutter valve. Back at home procalcitonin, subsequent urine Legionella, bacterial antigen negative. Sputum culture blood cultures preliminary negative. No chances of bacterial infection. For now continue with oral ceftriaxone to finish a 5-day course. Monitor inflammatory markers including LDH, fibrinogen, D-dimer, ferritin, CRP, ESR. Bradycardia: Brooks done today shows a poor window, possibly normal LV size, possibly normal LV functions. We will continue to monitor. Daily EKGs. Full code. Regular diet. Full dose Lovenox will also have a DVT prophylaxis. Attestations Medical Necessity Statement*: Requires further hospitalization for management of severe ARDS from acute COVID-19 pneumonia Time Spent in Patient Care: Greater than 35 minutes (>than 50% of time spent in counselling and/or direct pt care on unit) . Coding Level of Care Code Acute Associate Financial Representative for iTno Erickson Diagnoses ARDS (adult respiratory distress syndrome) J80 COVID-19 U07.1 Bradycardia R00.1
[2020-12-19] MEDS: vancomycin 1,250 MG/250 ML PIGGYBACK 200 MG IV (12:53)
[2020-12-19] MEDS: dexamethasone 4 mg/mL INJ 6 MG IVP (13:00)
[2020-12-19] MEDS: azithromycin 250 mg Tablet 500 MG PO (15:56)
--- NOTE | 2020-12-19 17:34 | PC.NURSE ---
As of 1499, pt has only produced 35 mL of urine since the beginning of shift. Average of 0.38mL/kg/hr. Bladder scan shows no residual. Nurse alerted Dr Reno of low urine output. Ordered to continue IV fluids and re evaluate tomorrow.
[2020-12-19] MEDS: remdesivir 100 MG in sodium chloride 0.9% (100 ml) 100 ML IV (17:45)
--- NOTE | 2020-12-19 18:46 | PC.NURSE ---
Shift Summary: Uneventful shift. Patient has been up to the chair multiple times throughout the day (approximately 8 hours). Started on antibiotics. Patient is self motivated to use flutter valve and spirometer.
--- NOTE | 2020-12-19 19:11 | PC.NURSE ---
Patient's shell is trying to get us a form from their insurance to fill out for short term disability. Needs to be faxed to [phone] attn: [email or web address]
[2020-12-19] MEDS: vancomycin 1,250 MG/250 ML PIGGYBACK 250 MG IV (19:27)
[2020-12-20] VITALS (101 sets, daily range): BP systolic 100–153; BP diastolic 66–100; PULSE 44–94; RESP 8–37; TEMP 36.6–36.9; O2SAT 82–97
[2020-12-20] MEDS: enoxaparin 120 mg/0.8 mL Syringe 110 MG SUBCUT ×2 (04:41→17:26)
[2020-12-20] MEDS: famotidine 20 mg/2 mL INJ IVP ×2 (04:42→17:26)
[2020-12-20 04:59] LABS: Basophils % 0.3 %; Hematocrit 42.9 % (42.0-52.0); Lymphocytes # 1.3 10^3/uL (0.8-4.8); Lymphocytes % 11.1 %; Mean Corpuscular HGB Conc 32.6 g/dL (30.0-36.0); Mean Corpuscular Hemoglobin 33.3 pg (28.0-34.0); Mean Corpuscular Volume 101.9 fL (80-94); Mean Platelet Volume 10.9 fL (7.4-10.4); Monocytes % 8.8 %; Neutrophils # 8.89 10^3/uL (1.8-7.7); Neutrophils % 77.9 %; Nucleated Red Blood Cells % 0 %; Platelet Count 253 10^3/cmm (130-400); Red Blood Count 4.21 10^6/uL (4.1-5.3); Red Cell Distribution Width 13.1 % (12.1-15.1); White Blood Count 11.4 10^3/uL (4.0-10.0)
[2020-12-20 05:29] LABS: Alanine Aminotransferase 18 U/L (0-41); Albumin Level 2.6 g/dL (3.5-5.2); Alkaline Phosphatase 72 IU/L (40-130); Anion Gap 15.8 (5-19); Aspartate Amino Transferase 17 U/L (0-40); Blood Urea Nitrogen 23 mg/dL (6-20); C Reactive Protein 95.2 mg/L (0.0-4.9); Calcium 8.3 mg/dL (8.5-10.5); Carbon Dioxide 19 mmol/L (22-29); Chloride 107 mmol/L (98-107); Creatine Phosphokinase 75 U/L (39-308); Globulin 3.7 g/dL (1.3-4.6); Glomerular Filtration Rate 121.4 mL/min (90-130); Glucose 139 mg/dL (65-115); Lactate Dehydrogenase 471 U/L (135-225); NT Pro B Type Natriuretic Pept 106 pg/mL (0-125); Osmolality Calculated 292 mOsm/kg (285-295); Potassium 3.8 mmol/L (3.5-5.1); Sodium 138 mmol/L (136-145); Total Bilirubin 0.4 mg/dL (0.15-1.2); Total Protein 6.3 g/dL (6.6-8.7)
[2020-12-20 05:37] LABS: Vancomycin Trough 10.1 ug/mL (10-15)
[2020-12-20 05:42] LABS: Slide Review Slide Review Perform
[2020-12-20 05:43] LABS: Fibrinogen 643 mg/dL (174-498)
[2020-12-20 05:45] LABS: D Dimer 0.42 ug/mIFEU (0-0.59)
[2020-12-20] MEDS: vancomycin 1,250 MG/250 ML PIGGYBACK 250 MG IV (05:46)
[2020-12-20 05:59] LABS: Erythrocyte Sedimentation Rate 54 mm/hr (0-10)
[2020-12-20 06:49] LABS: Ferritin 2621 ng/mL (30-400)
[2020-12-20] MEDS: ferrous gluconate 324 mg Tablet PO ×2 (08:10→18:05)
[2020-12-20] MEDS: ascorbic acid 500 mg Tablet 1000 MG PO ×2 (08:10→18:05)
[2020-12-20] MEDS: azithromycin 250 mg Tablet 500 MG PO (08:10)
[2020-12-20] MEDS: zinc gluconate 50 mg Tablet PO (08:10)
[2020-12-20] MEDS: benzonatate 100 mg Capsule PO ×3 (08:10→21:26)
--- NOTE | 2020-12-20 10:00 | ECG_ITS ---
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1975 Requested By: Tyler Reno Order Number: [id number] Reading MD: MIRTHA SMITH Measurements Intervals [place] Rate: 69 P: 50 WI: 174 QRS: 40 QRSD: 104 T: -3 QT: 393 QTc: 422 Interpretive Statements SINUS RHYTHM NONSPECIFIC T-WAVE ABNORMALITY WARNING: DATA QUALITY MAY AFFECT INTERPRETATION Compared to ECG 12/19/2020 10:57:46 T-wave abnormality now present Ventricular-paced complex(es) or rhythm no longer present Electronically Signed On 12-20-2020 17:05:40 CDT by MIRTHA SMITH [id number]
--- NOTE | 2020-12-20 11:40 | P.PN_ITS ---
Subjective Subjective: Interval history: Overnight patient has required more oxygen supplementation to maintain saturation over 90%. Currently he is on 60% FiO2 heated high flow to maintain 39 2%. He sitting up in chair. Looking restless tachypneic. States appetite level is appropriate. Vitals/I&O/Wt Last Vital Signs Temp 98.2 F 12/20/20 08:15 Pulse 72 12/20/20 10:15 Resp 26 H 12/20/20 10:15 BP 113/82 12/20/20 10:15 Pulse Ox 92 12/20/20 10:15 12/19/20 12/20/20 12/20/20 22:59 06:59 14:59 Intake Total 2060.833 / 3300.833 125 / 3425.833 650 / 650 Output Total 725 / 1325 400 / 1725 600 / 600 Balance 1335.833 / 1975.833 -275 / 1700.833 50 / 50 Weight last 48 hrs Weight 114.986 kg Weight 113.988 kg Physical Exam Narrative: EXAM NARRATIVE: General: No acute distress, AO x3 HEENT: PERRLA, pupils bilaterally equal and reactive Chest: Bronchial breath sounds all over the lung sales, rhonchi diffuse all over the lung sales no added sounds, equal good air entry bilaterally CVS: S1-S2 regular, no murmurs, no tachycardia, no gallops, no rubs Abdomen: Soft, nontender, no organomegaly, bowel sounds present Neuro: No focal deficits, no facial deformity, AO x3, power 5/5 in all limbs Data : 12/20/20 03:09 12/20/20 03:09 Micro: Microbiology 12/19/20 11:23 Blood Culture - Preliminary Blood NEGATIVE TO DATE 12/19/20 11:15 Blood Culture - Preliminary Blood NEGATIVE TO DATE 12/19/20 06:15 Gram Stain - Final Sputum - Expectorated Sputum Sputum Culture - Preliminary 12/18/20 11:13 Blood Culture - Preliminary Blood Coagulase negativ staphylococc 12/18/20 11:13 Blood Culture - Preliminary Blood NEGATIVE TO DATE 12/18/20 14:40 MRSA Culture - Final Nose A&P Assessment and plan (1) ARDS (adult respiratory distress syndrome): Status: Acute (2) COVID-19: Status: Acute (3) Bradycardia: Status: Acute Additional A&P Information COVID-19 pneumonia: At least moderate to severe disease. Oxygen supplementation keeping saturation over 90%. Continue with remdesivir to finish a 5-day course. Dexamethasone 6 mg IV daily. Post 1 dose Actemra on December 19. Continue with full dose Lovenox for now. CTA negative for PE. D-dimer elevated. Patient will most likely require low-dose anticoagulation as an outpatient for next 14 days post discharge. Continue vitamin C, zinc. Tessalon Perles. Switch from Advair and Spiriva to DuoNebs every 4 hours budesonide twice daily as patient is on heated high flow. Pulmonary toilet with incentive spirometry and flutter valve. Procalcitonin, urine Legionella, bacterial antigen negative. Sputum culture awaited. Blood culture preliminary showing 1 out of 4 bottles positive for coag negative staph. Most likely contaminant. Less likely bacterial superadded infection. Repeat blood cultures have remained negative. For now continue patient on IV vancomycin as per creatinine clearance. If repeat blood cultures remain negative for next 48 hours will discontinue. Monitor inflammatory markers including LDH, fibrinogen, D-dimer, ferritin, CRP, ESR. We will keep patient net negative. Stop IV fluids. IV Lasix 20 mg stat. Monitor input output. Bradycardia: Echocardiogram shows a possible normal LV size, possibly normal LV functions, poor echocardiogram window. We will continue to monitor. Daily EKGs. Full code. Regular diet. Full dose Lovenox will also have a DVT prophylaxis. Attestations Medical Necessity Statement*: Requires further hospitalization for management of ARDS secondary to COVID-19 pneumonia. Critical Care Time: The high probability of a clinically significant, sudden or life threatening deterioration of the patient's [respiratory] system(s) required my full and direct attention, intervention and personal management. The critical care time is as shown. This time is in addition to time spent performing any reported procedures but includes the following: [x] Data and vital sign review and interpretation [x] Patient assessment, examination and intervention [x] Documentation [x] Medication orders and management Critical Care Time (min): 80 Coding Level of Care Code Acute Christmas Tree Farmer for [facility] Georgina Diagnoses ARDS (adult respiratory distress syndrome) J80 COVID-19 U07.1 Bradycardia R00.1
[2020-12-20] MEDS: FUROsemide 10 mg/mL SDV 2mL 20 MG IVP (12:44)
[2020-12-20] MEDS: vancomycin 1,500 MG/300 ML PIGGYBACK 200 MG IV ×2 (12:45→21:25)
[2020-12-20] MEDS: dexamethasone 4 mg/mL INJ 6 MG IVP (14:39)
[2020-12-20] MEDS: ipratropium-albuterol 3 mL Neb INHALATION ×3 (15:24→23:59)
[2020-12-20] MEDS: remdesivir 100 MG in sodium chloride 0.9% (100 ml) 100 ML IV (18:05)
--- NOTE | 2020-12-20 19:10 | PC.NURSE ---
SHift summary: Uneventful shift. Pt recieved meds as orders and was eager to do lung exercises and to be up in a chair. Otherwise uneventful.
[2020-12-20] MEDS: budesonide 0.5 mg/2 mL Neb INHALATION (20:40)
[2020-12-21] VITALS (67 sets, daily range): BP systolic 100–141; BP diastolic 67–91; PULSE 45–105; RESP 12–46; TEMP 36.3–37; O2SAT 88–97
[2020-12-21] MEDS: ipratropium-albuterol 3 mL Neb INHALATION ×5 (03:12→23:56)
[2020-12-21] MEDS: enoxaparin 120 mg/0.8 mL Syringe 110 MG SUBCUT ×2 (04:46→16:32)
[2020-12-21] MEDS: vancomycin 1,500 MG/300 ML PIGGYBACK 200 MG IV ×2 (04:46→16:33)
[2020-12-21] MEDS: famotidine 20 mg/2 mL INJ IVP ×2 (04:46→16:32)
--- NOTE | 2020-12-21 06:00 | XRR_ITS ---
PROCEDURE INFORMATION: Exam: XR Chest Exam date and time: 12/21/2020 6:00 AM Age: 45 years old Clinical indication: Shortness of breath; Additional info: Covid TECHNIQUE: Imaging protocol: XR of the chest. Views: 1 view. COMPARISON: CR XR chest 1V portable [id number] 12/19/2020 5:28 AM FINDINGS: Lungs: Bilateral pulmonary infiltrates are present which have not significantly changed since the previous radiograph. Pleural spaces: Unremarkable. No pleural effusion. No pneumothorax. Heart/Mediastinum: Unremarkable. No cardiomegaly. Bones/joints: Unremarkable. XR/XR chest 1V portable [id number] IMPRESSION: Stable bilateral pulmonary infiltrates.
[2020-12-21 06:21] LABS: Basophils % 0.3 %; Eosinophils # 0.1 10^3/uL (0.0-0.8); Eosinophils % 0.6 %; Hematocrit 42.6 % (42.0-52.0); Hemoglobin 14.1 g/dL (11.7-16.6); Lymphocytes # 1.1 10^3/uL (0.8-4.8); Lymphocytes % 8.5 %; Mean Corpuscular HGB Conc 33.1 g/dL (30.0-36.0); Mean Corpuscular Hemoglobin 32.9 pg (28.0-34.0); Mean Corpuscular Volume 99.5 fL (80-94); Mean Platelet Volume 10.4 fL (7.4-10.4); Monocytes % 7.5 %; Neutrophils # 10.23 10^3/uL (1.8-7.7); Neutrophils % 79.2 %; Nucleated Red Blood Cells % 0 %; Platelet Count 313 10^3/cmm (130-400); Red Blood Count 4.28 10^6/uL (4.1-5.3); White Blood Count 12.9 10^3/uL (4.0-10.0)
[2020-12-21 06:44] LABS: Fibrinogen 548 mg/dL (174-498)
[2020-12-21 06:50] LABS: Alanine Aminotransferase 18 U/L (0-41); Albumin Level 2.7 g/dL (3.5-5.2); Alkaline Phosphatase 52 IU/L (40-130); Anion Gap 14.9 (5-19); Aspartate Amino Transferase 15 U/L (0-40); Blood Urea Nitrogen 22 mg/dL (6-20); C Reactive Protein 31.5 mg/L (0.0-4.9); Calcium 8.2 mg/dL (8.5-10.5); Carbon Dioxide 18 mmol/L (22-29); Chloride 109 mmol/L (98-107); Creatine Phosphokinase 54 U/L (39-308); Creatinine Clr Calc Pharmacy 171.5045; D Dimer 0.29 ug/mIFEU (0-0.59); Globulin 3.5 g/dL (1.3-4.6); Glomerular Filtration Rate 121.4 mL/min (90-130); Glucose 186 mg/dL (65-115); Lactate Dehydrogenase 322 U/L (135-225); NT Pro B Type Natriuretic Pept 131 pg/mL (0-125); Osmolality Calculated 294 mOsm/kg (285-295); Potassium 3.9 mmol/L (3.5-5.1); Sodium 138 mmol/L (136-145); Total Bilirubin 0.4 mg/dL (0.15-1.2); Total Protein 6.2 g/dL (6.6-8.7)
[2020-12-21 07:22] LABS: Slide Review Slide Review Perform
[2020-12-21 07:56] LABS: Ferritin 2494 ng/mL (30-400)
[2020-12-21] MEDS: budesonide 0.5 mg/2 mL Neb INHALATION ×2 (08:04→20:22)
[2020-12-21 08:08] LABS: Erythrocyte Sedimentation Rate 41 mm/hr (0-10)
--- NOTE | 2020-12-21 10:00 | ECG_ITS ---
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[id number] Requested By: Tyler Reno Order Number: [id number] Reading MD: MIRTHA SMITH Measurements Intervals Gregory Rate: 56 P: 43 [place]: 173 QRS: 34 QRSD: 117 T: 37 QT: 412 QTc: 399 Interpretive Statements SINUS BRADYCARDIA MODERATE INTRAVENTRICULAR CONDUCTION DELAY [110+ ms QRS DURATION] NONSPECIFIC T-WAVE ABNORMALITY Compared to ECG 12/20/2020 10:40:28 Intraventricular conduction delay now present Sinus rhythm no longer present T-wave abnormality still present Electronically Signed On 12-22-2020 18:55:15 CDT by MIRTHA SMITH [id number]
--- NOTE | 2020-12-21 10:23 | PM.PN ---
Subjective Subjective: Interval history: Documents overnight. Currently on 45 L 55% which is better than yesterday saturating 92% sitting up in chair. Working with incentive spirometry and flutter valve. Complaining of feeling fatigued and tired. States this is the worst he has ever felt in his life. Appetite is appropriate. Finishing 50 to 75% of his meals. Vitals/I&O/Wt Last Vital Signs Temp 97.4 F L 12/21/20 07:45 Pulse 79 12/21/20 08:15 Resp 14 12/21/20 08:15 BP 124/78 12/21/20 08:00 Pulse Ox 92 12/21/20 08:15 12/20/20 12/21/20 12/21/20 22:59 06:59 14:59 Intake Total 1050 / 2726.667 725 / 3451.667 Output Total 2050 / 2650 450 / 3100 Balance -1000 / 76.667 275 / 351.667 Weight last 48 hrs Weight 113.489 kg Weight 114.986 kg Physical Exam Narrative: EXAM NARRATIVE: General: No acute distress, AO x3 HEENT: PERRLA, pupils bilaterally equal and reactive Chest: Bronchial breath sounds all over the lung sales, rhonchi diffuse all over the lung sales no added sounds, equal good air entry bilaterally CVS: S1-S2 regular, no murmurs, no tachycardia, no gallops, no rubs Abdomen: Soft, nontender, no organomegaly, bowel sounds present Neuro: No focal deficits, no facial deformity, AO x3, power 5/5 in all limbs Data : 12/21/20 05:24 12/21/20 05:24 Other Labs: Laboratory Results Impressions Chest CTA 12/18/20 13:52 IMPRESSION: 1. Negative for pulmonary embolism. 2. Patchy scattered nonspecific ground-glass airspace disease throughout both lungs. 3. Commonly reported imaging features of COVID-19 pneumonia are present. Other processes such as influenza pneumonia and organizing pneumonia, as can be seen with drug toxicity and connective tissue disease, can cause a similar imaging pattern. (Reference: Bong) REFERENCES: Bong Miguel et al., Radiological Society of [place] Expert Consensus Statement on Reporting Chest CT Findings Related to COVID-19. Endorsed by the Society of Thoracic Radiology, the [employer], and RSNA. Published September 12, 2019. Radiation Dose CTDIVOL = (mGy): DLP = 627.73 (mGy-cm) Chest X-Ray 12/21/20 06:00 IMPRESSION: Stable bilateral pulmonary infiltrates. Micro: Microbiology 12/19/20 06:15 Gram Stain - Final Sputum - Expectorated Sputum Sputum Culture - Final 12/19/20 11:23 Blood Culture - Preliminary Blood NEGATIVE TO DATE 12/19/20 11:15 Blood Culture - Preliminary Blood NEGATIVE TO DATE 12/18/20 11:13 Blood Culture - Preliminary Blood Coagulase negativ staphylococc A&P Assessment and plan (1) ARDS (adult respiratory distress syndrome): Status: Acute (2) COVID-19: Status: Acute (3) Bradycardia: Status: Acute Additional A&P Information COVID-19 pneumonia: At least moderate to severe disease. Oxygen supplementation keeping saturation over 90%. Repeat ABG. Continue with remdesivir to finish a 5-day course. Dexamethasone 6 mg IV daily. Post 1 dose Actemra on December 19. Continue with full dose Lovenox for now. CTA negative for PE. D-dimer elevated. Patient will most likely require low-dose anticoagulation as an outpatient for next 14 days post discharge. Continue vitamin C, zinc. Tessalon Perles. Continue with DuoNebs every 4 hours budesonide twice daily as patient is on heated high flow. Pulmonary toilet with incentive spirometry and flutter valve. Procalcitonin, urine Legionella, bacterial antigen negative. Sputum culture awaited. Blood culture preliminary showing 1 out of 4 bottles positive for coag negative staph. Most likely contaminant. Less likely bacterial superadded infection. Repeat blood cultures have remained negative. For now continue patient on IV vancomycin as per creatinine clearance. If repeat blood cultures remain negative for next 48 hours will discontinue. Monitor inflammatory markers including LDH, fibrinogen, D-dimer, ferritin, CRP, ESR. We will keep patient net negative. Plan for at least 1 L negative in next 24 hours. Fluid restriction up to 1800 cc. Lasix 40 mg IV stat. Monitor input output. Bradycardia: Echocardiogram shows a possible normal LV size, possibly normal LV functions, poor echocardiogram window. We will continue to monitor. Daily EKGs. Full code. Regular diet. Full dose Lovenox will also have a DVT prophylaxis. Attestations Medical Necessity Statement*: Requires further hospitalization for management of ARDS secondary to COVID-19 pneumonia. Critical Care Time: The high probability of a clinically significant, sudden or life threatening deterioration of the patient's [respiratory] system(s) required my full and direct attention, intervention and personal management. The critical care time is as shown. This time is in addition to time spent performing any reported procedures but includes the following: [x] Data and vital sign review and interpretation [x] Patient assessment, examination and intervention [x] Documentation [x] Medication orders and management Critical Care Time (min): 70 Coding Level of Care Code Acute Customs Compliance Manager for [facility] Fwdilshad Diagnoses ARDS (adult respiratory distress syndrome) J80 COVID-19 U07.1 Bradycardia R00.1
[2020-12-21] MEDS: azithromycin 250 mg Tablet 500 MG PO (10:40)
[2020-12-21] MEDS: ferrous gluconate 324 mg Tablet PO ×2 (10:40→19:09)
[2020-12-21] MEDS: zinc gluconate 50 mg Tablet PO (10:40)
[2020-12-21] MEDS: ascorbic acid 500 mg Tablet 1000 MG PO ×2 (10:40→19:09)
[2020-12-21] MEDS: FUROsemide 10 mg/mL SDV 4mL 40 MG IVP (10:40)
[2020-12-21] MEDS: benzonatate 100 mg Capsule PO ×3 (10:41→20:16)
[2020-12-21 11:51] LABS: Vancomycin Trough 21.1 ug/mL (10-15)
[2020-12-21 14:11] LABS: ABG PCO2 24.6 mmHg (35-45); ABG PH Result 7.51 (7.35-7.45); Arterial Blood Gas Hematocrit 46.6 % (42-52); Base Excess ABG -1.7 mmol/L (-2.0-2.0); Blood Gas Sample Type Arterial; Carboxyhemoglobin 0.6 %THgb (0.4-20.1); HCO3 ABG 19.5 mmol/L (22-26); HGB O2 Sat 89.8 % (95-100); Ionized Calcium Level - ABG 1.1 mmol/L (1.1-1.4); Methemoglobin 0.6 % (0.4-1.5); Oxygen Saturation ABG 90.9; PO2 ABG 53.1 mmHg (80.0-100.0); Potassium Level - ABG 3.2 mmol/L (3.5-5.0); Total Hemoglobin 15.2 g/dL (14-18)
[2020-12-21 14:12] LABS: Alveolar-Arterial Oxygen Gradi 39.9 mmHg (5-10); Blood Gas Operator Identificat ED; Blood Gas Sample Site Brachial, right
[2020-12-21] MEDS: dexamethasone 4 mg/mL INJ 6 MG IVP (16:32)
[2020-12-21] MEDS: remdesivir 100 MG in sodium chloride 0.9% (100 ml) 100 ML IV (19:10)
--- NOTE | 2020-12-21 19:10 | PC.NURSE ---
Pt able to pull 1250 with his IS.
[2020-12-21] MEDS: morphine 4 mg/mL SDV 1 mL 2 MG IVP (23:05)
[2020-12-22] VITALS (33 sets, daily range): BP systolic 93–156; BP diastolic 64–98; PULSE 47–103; RESP 16–27; TEMP 36.2–36.7; O2SAT 90–97
[2020-12-22] MEDS: morphine 4 mg/mL SDV 1 mL 2 MG IVP ×2 (02:11→05:45)
[2020-12-22] MEDS: ipratropium-albuterol 3 mL Neb INHALATION ×7 (03:00→23:21)
[2020-12-22] MEDS: famotidine 20 mg/2 mL INJ IVP ×2 (03:06→16:17)
[2020-12-22] MEDS: enoxaparin 120 mg/0.8 mL Syringe 110 MG SUBCUT ×2 (03:06→16:18)
[2020-12-22 05:26] LABS: Hematocrit 41.8 % (42.0-52.0); Hemoglobin 14.2 g/dL (11.7-16.6); Mean Corpuscular Hemoglobin 33.3 pg (28.0-34.0); Mean Corpuscular Volume 97.9 fL (80-94); Platelet Count 354 10^3/cmm (130-400); Red Blood Count 4.27 10^6/uL (4.1-5.3); Red Cell Distribution Width 13.1 % (12.1-15.1); White Blood Count 13.8 10^3/uL (4.0-10.0)
[2020-12-22 05:36] LABS: Fibrinogen 501 mg/dL (174-498)
[2020-12-22 05:48] LABS: Alanine Aminotransferase 29 U/L (0-41); Albumin Level 2.8 g/dL (3.5-5.2); Alkaline Phosphatase 50 IU/L (40-130); Anion Gap 15.1 (5-19); Aspartate Amino Transferase 25 U/L (0-40); Blood Urea Nitrogen 22 mg/dL (6-20); C Reactive Protein 14.3 mg/L (0.0-4.9); Calcium 7.8 mg/dL (8.5-10.5); Carbon Dioxide 20 mmol/L (22-29); Chloride 108 mmol/L (98-107); Globulin 3.4 g/dL (1.3-4.6); Glucose 219 mg/dL (65-115); Lactate Dehydrogenase 354 U/L (135-225); NT Pro B Type Natriuretic Pept 71 pg/mL (0-125); Osmolality Calculated 298 mOsm/kg (285-295); Potassium 4.1 mmol/L (3.5-5.1); Sodium 139 mmol/L (136-145); Total Bilirubin 0.3 mg/dL (0.15-1.2); Total Protein 6.2 g/dL (6.6-8.7)
[2020-12-22] MEDS: vancomycin 1,500 MG/300 ML PIGGYBACK 200 MG IV (05:48)
[2020-12-22 05:50] LABS: Oxygen Device HHFNC
[2020-12-22 05:56] LABS: Slide Review Slide Review Perform
[2020-12-22 05:58] LABS: Absolute Neutrophil 10.4 10^3/cmm (1.4-6.5); Absolute Segmented Neutrophil 9.8 10/cmm (1.6-7.1); Band Neutrophils Absolute 0.6 10^3/cmm (0.0-1.2); Eosinophils 0 %; Lymphocytes 10 %; Lymphocytes Absolute 1.5 10^3/cmm (1.2-3.4); Monocytes Absolute 1.5 10^3/cmm (0.1-0.6); Platelet Estimate Normal (Normal); Segmented Neutrophils 71 %; Total Cells Counted 100 (0-100)
[2020-12-22 06:06] LABS: Ferritin 2268 ng/mL (30-400)
[2020-12-22 06:21] LABS: Erythrocyte Sedimentation Rate 43 mm/hr (0-10)
[2020-12-22] MEDS: budesonide 0.5 mg/2 mL Neb INHALATION ×2 (08:11→19:47)
[2020-12-22] MEDS: azithromycin 250 mg Tablet 500 MG PO (08:14)
[2020-12-22] MEDS: benzonatate 100 mg Capsule PO ×3 (08:14→21:38)
[2020-12-22] MEDS: zinc gluconate 50 mg Tablet PO (08:14)
[2020-12-22] MEDS: ascorbic acid 500 mg Tablet 1000 MG PO ×2 (08:14→18:32)
[2020-12-22] MEDS: ferrous gluconate 324 mg Tablet PO ×2 (08:14→18:32)
--- NOTE | 2020-12-22 12:24 | PM.PN ---
Subjective Subjective: Interval history: Patient was seen and examined this morning, continues to be tachypneic, short of breath, desats with minimal exertion. Currently is on 40 L and 50% FiO2. Vitals/I&O/Wt Last Vital Signs Temp 98.1 F 12/22/20 02:00 Pulse 103 H 12/22/20 11:39 Resp 22 H 12/22/20 11:39 BP 108/65 12/22/20 04:00 Pulse Ox 94 12/22/20 11:39 12/21/20 12/22/20 12/22/20 22:59 06:59 14:59 Intake Total 475 / 835 Output Total 600 / 1100 1000 / 2100 Balance -125 / -265 -1000 / -1265 Weight last 48 hrs Weight 113.489 kg Physical Exam Const: COMMON NORMALS: patient oriented x3 HENMT: COMMON NORMALS: normocephalic and atraumatic HEAD & SCALP: normocephalic and atraumatic Chest: CHEST: Yes Symmetrical chest wall rise Resp: EFFORT & INSPECTION: Yes symmetric chest movement OTHER: Minimal fine basal bilateral crackles, no wheezing no rhonchi Cardio: COMMON NORMALS: regular rate, regular rhythm, S1 normal heart sound present, S2 normal heart sound present, No gallops present (Cardio), No murmurs present (Cardio), No rub (Cardio) and Peripheral pulses 2+ throughout RATE: regular rate RHYTHM: regular rhythm HEART SOUNDS: S1 normal heart sound present and S2 normal heart sound present PERIPHERAL PULSES: Peripheral pulses 2+ throughout GI: COMMON NORMALS: Normal to inspection, nondistended, normoactive bowel sounds present, Soft to palpation, non-tender, No hepatosplenomegaly present and no masses AUSCULTATION: Yes normoactive bowel sounds PALPATION: Yes Soft to palpation and Yes No hepatosplenomegaly present RECTAL EXAM: Yes deferred Extremity: COMMON NORMALS: no clubbing, cyanosis or edema and no pedal edema Neuro: COMMON NORMALS: patient oriented x3 Data : 12/22/20 05:05 12/22/20 05:05 Micro: Microbiology 12/19/20 06:15 Gram Stain - Final Sputum - Expectorated Sputum Sputum Culture - Final A&P Assessment and plan (1) ARDS (adult respiratory distress syndrome): Status: Acute (2) COVID-19: Status: Acute (3) Bradycardia: Status: Acute Additional A&P Information Severe ARDS 2/2 Covid pneumonia: Oxygen supplementation keeping saturation over 90%. Repeat ABG. Continue with remdesivir to finish a 5-day course. Dexamethasone 6 mg IV daily. Post 1 dose Actemra on December 19. Continue with full dose Lovenox for now. CTA negative for PE. D-dimer elevated. Patient will most likely require low-dose anticoagulation as an outpatient for next 14 days post discharge. Continue vitamin C, zinc. Tessalon Perles. Continue with DuoNebs every 4 hours budesonide twice daily as patient is on heated high flow. Pulmonary toilet with incentive spirometry and flutter valve. Procalcitonin, urine Legionella, bacterial antigen negative. Sputum culture awaited. Blood culture preliminary showing 1 out of 4 bottles positive for coag negative staph. Most likely contaminant. Less likely bacterial superadded infection. Repeat blood cultures have remained negative. Initially on IV vancomycin as per creatinine clearance.It was discontinue on 12/22 Strated on Ceftriaxone continue azithromycin Monitor inflammatory markers including LDH, fibrinogen, D-dimer, ferritin, CRP, ESR. We will keep patient net negative. Plan for at least 1 L negative in next 24 hours. Fluid restriction up to 1800 cc. Lasix as needed. Monitor I/O Asymptomatic sinus Bradycardia: Echocardiogram shows a possible normal LV size, possibly normal LV functions, poor echocardiogram window. We will continue to monitor. Full code. Regular diet. DVT prophylaxis on Lovenox Attestations Medical Necessity Statement*: Patient needs to be in hospital for management of ARDS secondary to Covid pneumonia. Coding Level of Care Code Acute Displayer Merchandise for Tino Erickson Diagnoses ARDS (adult respiratory distress syndrome) J80 COVID-19 U07.1 Bradycardia R00.1
[2020-12-22] MEDS: dexamethasone 4 mg/mL INJ 6 MG IVP (16:17)
[2020-12-22] MEDS: cefTRIAXone 1,000 MG in sodium chloride 0.9% (plus) 50 ML 100 MG IV (16:18)
[2020-12-22] MEDS: remdesivir 100 MG in sodium chloride 0.9% (100 ml) 100 ML IV (18:32)
[2020-12-23] VITALS (88 sets, daily range): BP systolic 97–138; BP diastolic 60–91; PULSE 46–122; RESP 13–26; TEMP 36.2–36.7; O2SAT 86–99
[2020-12-23] MEDS: enoxaparin 120 mg/0.8 mL Syringe 110 MG SUBCUT ×2 (03:01→16:43)
[2020-12-23] MEDS: famotidine 20 mg/2 mL INJ IVP ×2 (03:02→16:42)
[2020-12-23 05:38] LABS: Fibrinogen 491 mg/dL (174-498)
[2020-12-23 05:42] LABS: D Dimer <= 0.27 ug/mIFEU (0-0.59)
[2020-12-23 05:43] LABS: Creatine Phosphokinase 98 U/L (39-308); Lactate Dehydrogenase 324 U/L (135-225); NT Pro B Type Natriuretic Pept 64 pg/mL (0-125)
[2020-12-23 05:59] LABS: Ferritin 2193 ng/mL (30-400)
--- NOTE | 2020-12-23 06:00 | XRR_ITS ---
PROCEDURE INFORMATION: Exam: XR Chest Exam date and time: 12/23/2020 6:00 AM Age: 45 years old Clinical indication: Condition or disease; Lung condition and disease; Patient HX: Covid pneumonia, high flow oxygen TECHNIQUE: Imaging protocol: XR of the chest. Views: 1 view. COMPARISON: XR CHEST 12/21/2020 5:42 AM FINDINGS: Lungs: Bilateral peripheral airspace disease is redemonstrated consistent with the history. This is not significantly changed allowing for director of counseling technique. Pleural spaces: No pleural effusion or pneumothorax. Heart/Mediastinum: The cardiac silhouette is not enlarged. The mediastinal contours are unchanged. Bones/joints: There are multilevel bridging osteophytes in the spine. XR/XR chest 1V portable [id number] IMPRESSION: No significant change when compared to XR CHEST 12/21/2020 5:42 AM.
[2020-12-23 06:19] LABS: Erythrocyte Sedimentation Rate 28 mm/hr (0-10)
[2020-12-23] MEDS: budesonide 0.5 mg/2 mL Neb INHALATION ×2 (08:08→19:56)
[2020-12-23] MEDS: ipratropium-albuterol 3 mL Neb INHALATION ×5 (08:08→23:31)
[2020-12-23] MEDS: ascorbic acid 500 mg Tablet 1000 MG PO ×2 (08:34→17:31)
[2020-12-23] MEDS: benzonatate 100 mg Capsule PO ×3 (08:34→20:21)
[2020-12-23] MEDS: zinc gluconate 50 mg Tablet PO (08:34)
[2020-12-23] MEDS: azithromycin 250 mg Tablet 500 MG PO (08:34)
[2020-12-23] MEDS: ferrous gluconate 324 mg Tablet PO ×2 (08:34→17:30)
--- NOTE | 2020-12-23 09:40 | PC.CHAP ---
Pastoral Care Encounter/Spiritual Assessment Type of Contact [] Declined pickling machine operator visit [] Patient/Family/Request visit [] Outpatient visit [] Follow-up visit [] Physician referral [] Code/Alert [x] Routine visit [] Staff referral [] Actively dying [] Patient sleeping [] Family support [] [] Out of room [] Palliative care [] [] Receiving care in room [] Pre-surgical visit [] Trauma [] Long length of stay [x] ICU visit [] Other: Relational/Emotional Strength [] Patient feels connected with others/family/visitors/staff [] Distress [] Loneliness/isolation [] Abandonment Spirituality of Patient [] Person of Marlin [] Attends Mu-Ism of their Marlin [] Believes in Prayer [] Reads Bible or Methodist materials [] There are Spiritual issues to be addressed Radiology Orderly Interventions [x] Prayer [] Active listening [] Non-anxious presence [] Spiritual/emotional support [] Crisis/trauma care [] Spiritual counseling [] Bereavement support [] Provided bereavement packet [] Provided Bible/devotional materials [] Provided toy/stuffed animal, coloring book to patient or family member [] Provided Communion [] Anointing/[place] [] Salvation [x] Completed spiritual assessment [] Other: Impact on Illness or Injury [] Angry [] Fearful [] Anxious [] Often cries [] Exhaustion [] Unable to work [] Unable to attend restorationism [] Unable to walk/stand [] Unable to read [] Unable to drive [] Unable to eat/drink [] Unable to sleep [] Unable to be with family [] Patient intubated [] Other: Summary Time spent with patient
[2020-12-23] MEDS: dexamethasone 4 mg/mL INJ 6 MG IVP (14:57)
--- NOTE | 2020-12-23 16:28 | P.PN_ITS ---
Subjective Subjective: Interval history: Patient was seen and examined this morning, overall he is doing better today, though he is still complaining of significant fatigue particularly towards the later half of the day, he was sitting in chair till afternoon today.Currently he is on heated high flow oxygen through nasal cannula at 30 Ls and 40% FiO2. Medications: Reviewed: Yes Vitals/I&O/Wt Last Vital Signs Temp 98.0 F 12/23/20 13:00 Pulse 98 12/23/20 15:07 Resp 22 H 12/23/20 15:00 BP 105/72 12/23/20 13:15 Pulse Ox 90 12/23/20 15:00 12/23/20 12/23/20 12/23/20 06:59 14:59 22:59 Intake Total 690 / 690 Output Total 150 / 1300 450 / 450 Balance -150 / -940 240 / 240 Weight last 48 hrs Weight 111.584 kg Physical Exam Const: COMMON NORMALS: patient oriented x3 HENMT: COMMON NORMALS: normocephalic and atraumatic HEAD & SCALP: normocephalic and atraumatic Chest: CHEST: Yes Symmetrical chest wall rise Resp: EFFORT & INSPECTION: Yes symmetric chest movement OTHER: Minimal fine basal bilateral crackles, no wheezing no rhonchi Cardio: COMMON NORMALS: regular rate, regular rhythm, S1 normal heart sound present, S2 normal heart sound present, No gallops present (Cardio), No murmurs present (Cardio), No rub (Cardio) and Peripheral pulses 2+ throughout RATE: regular rate RHYTHM: regular rhythm HEART SOUNDS: S1 normal heart sound present and S2 normal heart sound present PERIPHERAL PULSES: Peripheral pulses 2+ throughout GI: COMMON NORMALS: Normal to inspection, nondistended, normoactive bowel soun ds present, Soft to palpation, non-tender, No hepatosplenomegaly present and no masses AUSCULTATION: Yes normoactive bowel sounds PALPATION: Yes Soft to palpation and Yes No hepatosplenomegaly present RECTAL EXAM: Yes deferred Extremity: COMMON NORMALS: no clubbing, cyanosis or edema and no pedal edema Neuro: COMMON NORMALS: patient oriented x3 Data : 12/22/20 05:05 12/22/20 05:05 Micro: Microbiology 12/18/20 11:13 Blood Culture - Final Blood NO GROWTH AFTER 5 DAYS A&P Assessment and plan (1) ARDS (adult respiratory distress syndrome): Status: Acute (2) COVID-19: Status: Acute (3) Bradycardia: Status: Acute Additional A&P Information Severe ARDS 2/2 Covid pneumonia: Oxygen supplementation keeping saturation over 90%. Repeat ABG. Continue with remdesivir to finish a 5-day course. Dexamethasone 6 mg IV daily. Post 1 dose Actemra on December 19. Continue with full dose Lovenox for now. CTA negative for PE. D-dimer elevated. Patient will most likely require low-dose anticoagulation as an outpatient for next 14 days post discharge. Continue vitamin C, zinc. Tessalon Perles. Continue with DuoNebs every 4 hours budesonide twice daily as patient is on heated high flow. Pulmonary toilet with incentive spirometry and flutter valve. Procalcitonin, urine Legionella, bacterial antigen negative. Sputum culture awaited. Blood culture preliminary showing 1 out of 4 bottles positive for coag negative staph. Most likely contaminant. Less likely bacterial superadded infection. Repeat blood cultures have remained negative. Initially on IV vancomycin as per creatinine clearance.It was discontinue on 12/22 Strated on Ceftriaxone continue azithromycin Monitor inflammatory markers including LDH, fibrinogen, D-dimer, ferritin, CRP, ESR. We will keep patient net negative. Plan for at least 1 L negative in next 24 hours. Fluid restriction up to 1800 cc. Lasix as needed. Monitor I/O Asymptomatic sinus Bradycardia: Echocardiogram shows a possible normal LV size, possibly normal LV functions, poor echocardiogram window. We will continue to monitor. Full code. Regular diet. DVT prophylaxis on Lovenox Attestations Medical Necessity Statement*: Patient needs to be in the hospital for management of ARDS secondary to Covid pneumonia. Coding Level of Care Code Acute Filament Maker for [facility] Diagnoses ARDS (adult respiratory distress syndrome) J80 COVID-19 U07.1 Bradycardia R00.1
[2020-12-23] MEDS: cefTRIAXone 1,000 MG in sodium chloride 0.9% (plus) 50 ML 100 MG IV (16:39)
[2020-12-24] VITALS (41 sets, daily range): BP systolic 96–136; BP diastolic 63–86; PULSE 51–106; RESP 17–29; TEMP 36.3–36.9; O2SAT 88–98
[2020-12-24] MEDS: ipratropium-albuterol 3 mL Neb INHALATION ×6 (03:46→23:42)
[2020-12-24] MEDS: famotidine 20 mg/2 mL INJ IVP ×2 (04:35→15:23)
[2020-12-24] MEDS: enoxaparin 120 mg/0.8 mL Syringe 110 MG SUBCUT ×2 (04:35→15:24)
[2020-12-24 05:14] LABS: Basophils # 0.1 10^3/uL (0.0-0.1); Basophils % 0.6 %; Hematocrit 43.3 % (42.0-52.0); Hemoglobin 14.6 g/dL (11.7-16.6); Lymphocytes # 1.6 10^3/uL (0.8-4.8); Lymphocytes % 8.8 %; Mean Corpuscular HGB Conc 33.7 g/dL (30.0-36.0); Mean Corpuscular Hemoglobin 32.9 pg (28.0-34.0); Mean Corpuscular Volume 97.5 fL (80-94); Mean Platelet Volume 9.8 fL (7.4-10.4); Monocytes # 1.2 10^3/uL (0.2-0.9); Monocytes % 6.6 %; Neutrophils # 13.85 10^3/uL (1.8-7.7); Neutrophils % 76.2 %; Nucleated Red Blood Cells % 0 %; Platelet Count 331 10^3/cmm (130-400); Red Blood Count 4.44 10^6/uL (4.1-5.3); Red Cell Distribution Width 12.9 % (12.1-15.1); White Blood Count 18.2 10^3/uL (4.0-10.0)
[2020-12-24 05:23] LABS: Fibrinogen 450 mg/dL (174-498)
[2020-12-24 05:25] LABS: D Dimer 0.35 ug/mIFEU (0-0.59)
[2020-12-24 05:31] LABS: Blood Urea Nitrogen 22 mg/dL (6-20); Calcium 7.8 mg/dL (8.5-10.5); Carbon Dioxide 20 mmol/L (22-29); Chloride 106 mmol/L (98-107); Glomerular Filtration Rate 121.4 mL/min (90-130); Glucose 164 mg/dL (65-115); Osmolality Calculated 291 mOsm/kg (285-295); Sodium 137 mmol/L (136-145)
[2020-12-24 05:32] LABS: Anion Gap 15.3 (5-19); Potassium 4.3 mmol/L (3.5-5.1)
[2020-12-24 05:42] LABS: C Reactive Protein 4.8 mg/L (0.0-4.9); Creatine Phosphokinase 145 U/L (39-308); Lactate Dehydrogenase 362 U/L (135-225); NT Pro B Type Natriuretic Pept 49 pg/mL (0-125)
--- NOTE | 2020-12-24 05:52 | PC.NURSE ---
Shift summary No c/o through shift, reports feeling better, eager to get out of unit, uneventful shift, supine 45 degrees call light within reach
[2020-12-24 05:58] LABS: Slide Review Slide Review Perform
[2020-12-24 06:12] LABS: Ferritin 2176 ng/mL (30-400)
[2020-12-24 06:50] LABS: Erythrocyte Sedimentation Rate 25 mm/hr (0-10)
[2020-12-24] MEDS: azithromycin 250 mg Tablet 500 MG PO (08:00)
[2020-12-24] MEDS: ferrous gluconate 324 mg Tablet PO ×2 (08:00→17:13)
[2020-12-24] MEDS: zinc gluconate 50 mg Tablet PO (08:01)
[2020-12-24] MEDS: benzonatate 100 mg Capsule PO ×3 (08:01→20:30)
[2020-12-24] MEDS: budesonide 0.5 mg/2 mL Neb INHALATION ×2 (08:20→20:23)
[2020-12-24] MEDS: ascorbic acid 500 mg Tablet 1000 MG PO ×2 (09:50→17:13)
--- NOTE | 2020-12-24 10:18 | PC.CHAP ---
Pastoral Care Encounter/Spiritual Assessment Type of Contact [] Declined sandwich wrapper visit [] Patient/Family/Request visit [] Outpatient visit [] Follow-up visit [] Physician referral [] Code/Alert [x] Routine visit [] Staff referral [] Actively dying [] Patient sleeping [] Family support [] [] Out of room [] Palliative care [] [] Receiving care in room [] Pre-surgical visit [] Trauma [] Long length of stay [x] ICU visit [x] Other: setting up in chair Relational/Emotional Strength [] Patient feels connected with others/family/visitors/staff [] Distress [] Loneliness/isolation [] Abandonment Spirituality of Patient [] Person of Marlin [] Attends Mosque of their [place] [] Believes in Prayer [] Reads Bible or Orthodoxy materials [] There are Spiritual issues to be addressed Academic Counselor Interventions [x] Prayer [] Active listening [] Non-anxious presence [] Spiritual/emotional support [] Crisis/trauma care [] Spiritual counseling [] Bereavement support [] Provided bereavement packet [] Provided Bible/devotional materials [] Provided toy/stuffed animal, coloring book to patient or family member [] Provided Communion [] Anointing/[place] [] Salvation [x] Completed spiritual assessment [] Other: Impact on Illness or Injury [] Angry [] Fearful [] Anxious [] Often cries [] Exhaustion [] Unable to work [] Unable to attend jewish [] Unable to walk/stand [] Unable to read [] Unable to drive [] Unable to eat/drink [] Unable to sleep [] Unable to be with family [] Patient intubated [] Other: Summary Time spent with patient
--- NOTE | 2020-12-24 12:29 | P.PN_ITS ---
Subjective Subjective: Interval history: Patient was seen and examined this morning, overall he is doing better today, he was transitioned to high flow oxygen through nasal cannula 12 L/min Medications: Reviewed: Yes Vitals/I&O/Wt Last Vital Signs Temp 97.3 F L 12/24/20 11:00 Pulse 106 H 12/24/20 12:25 Resp 20 H 12/24/20 12:00 BP 105/80 12/24/20 12:00 Pulse Ox 93 12/24/20 12:25 12/23/20 12/24/20 12/24/20 22:59 06:59 14:59 Intake Total 830 / 1520 300 / 300 Output Total 760 / 1210 500 / 1710 500 / 500 Balance 70 / 310 -500 / -190 -200 / -200 Weight last 48 hrs Weight 112.491 kg Weight 111.584 kg Physical Exam Const: COMMON NORMALS: patient oriented x3 HENMT: COMMON NORMALS: normocephalic and atraumatic HEAD & SCALP: normocephalic and atraumatic Chest: CHEST: Yes Symmetrical chest wall rise Resp: EFFORT & INSPECTION: Yes symmetric chest movement OTHER: Minimal fine basal bilateral crackles, no wheezing no rhonchi Cardio: COMMON NORMALS: regular rate, regular rhythm, S1 normal heart sound present, S2 normal heart sound present, No gallops present (Cardio), No murmurs present (Cardio), No rub (Cardio) and Peripheral pulses 2+ throughout RATE: regular rate RHYTHM: regular rhythm HEART SOUNDS: S1 normal heart sound present and S2 normal heart sound present PERIPHERAL PULSES: Peripheral pulses 2+ throughout GI: COMMON NORMALS: Normal to inspection, nondistended, normoactive bowel sounds present, Soft to palpation, non-tender, No hepatosplenomegaly present and no masses AUSCULTATION: Yes normoactive bowel sounds PALPATION: Yes Soft to palpation and Yes No hepatosplenomegaly present RECTAL EXAM: Yes deferred Extremity: COMMON NORMALS: no clubbing, cyanosis or edema and no pedal edema Neuro: COMMON NORMALS: patient oriented x3 Data : 12/24/20 04:37 12/24/20 04:37 Micro: Microbiology 12/19/20 11:23 Blood Culture - Final Blood NO GROWTH AFTER 5 DAYS 12/19/20 11:15 Blood Culture - Final Blood NO GROWTH AFTER 5 DAYS 12/18/20 11:13 Blood Culture - Final Blood Coagulase negativ staphylococc 12/18/20 11:13 Blood Culture - Final Blood NO GROWTH AFTER 5 DAYS A&P Assessment and plan (1) ARDS (adult respiratory distress syndrome): Status: Acute (2) COVID-19: Status: Acute (3) Bradycardia: Status: Acute Additional A&P Information Severe ARDS 2/2 Covid pneumonia: CTA negative for PE. Trend inflammatory markers (D-dimer, ESR , CRP , ferritin, fibrinogen ) Procalcitonin, urine Legionella, bacterial antigen negative. Sputum culture awaited. Blood culture preliminary showing 1 out of 4 bottles positive for coag negative staph. Most likely contaminant. Less likely bacterial superadded infection. Repeat blood cultures have remained negative. Monitor ABG Monitor x-ray chest Completed remdesivir 5-day course. 1 dose Actemra on December 19. Dexamethasone 6 mg IV daily. Lovenox 110 mg subcu every 12 hours. Initially on IV vancomycin as per creatinine clearance.It was discontinue on 12/22 Strated on Ceftriaxone continue azithromycin Continue vitamin C, zinc. Tessalon Perles. Continue with DuoNebs every 4 hours budesonide twice daily as patient is on heated high flow. Pulmonary toilet with incentive spirometry and flutter valve. Lasix as needed to keep net negative Los Fluid restriction up to 1800 cc. Monitor I/O Asymptomatic sinus Bradycardia: Echocardiogram shows a possible normal LV size, possibly normal LV functions, poor echocardiogram window. We will continue to monitor. Full code. Regular diet. DVT prophylaxis on Lovenox Attestations Medical Necessity Statement*: Patient needs to be in hospital for management of Covid pneumonia. Coding Level of Care Code Acute Indian Blanket Weaver for Tino Erickson Diagnoses ARDS (adult respiratory distress syndrome) J80 COVID-19 U07.1 Bradycardia R00.1
[2020-12-24] MEDS: dexamethasone 4 mg/mL INJ 6 MG IVP (15:23)
[2020-12-24] MEDS: cefTRIAXone 1,000 MG in sodium chloride 0.9% (plus) 50 ML 100 MG IV (15:24)
[2020-12-25] VITALS (30 sets, daily range): BP systolic 93–140; BP diastolic 29–94; PULSE 48–95; RESP 18–30; TEMP 36.8; O2SAT 90–96
[2020-12-25] MEDS: enoxaparin 120 mg/0.8 mL Syringe 110 MG SUBCUT (04:01)
[2020-12-25] MEDS: famotidine 20 mg/2 mL INJ IVP ×2 (04:01→15:48)
[2020-12-25] MEDS: ipratropium-albuterol 3 mL Neb INHALATION ×3 (04:17→11:52)
[2020-12-25 06:04] LABS: Basophils # 0.1 10^3/uL (0.0-0.1); Basophils % 0.6 %; Hematocrit 44.4 % (42.0-52.0); Hemoglobin 14.7 g/dL (11.7-16.6); Lymphocytes # 1.3 10^3/uL (0.8-4.8); Lymphocytes % 6.5 %; Mean Corpuscular HGB Conc 33.1 g/dL (30.0-36.0); Mean Corpuscular Hemoglobin 32.6 pg (28.0-34.0); Mean Corpuscular Volume 98.4 fL (80-94); Mean Platelet Volume 9.9 fL (7.4-10.4); Monocytes # 1.1 10^3/uL (0.2-0.9); Monocytes % 5.6 %; Neutrophils # 15.93 10^3/uL (1.8-7.7); Neutrophils % 79.6 %; Nucleated Red Blood Cells % 0 %; Platelet Count 356 10^3/cmm (130-400); Red Blood Count 4.51 10^6/uL (4.1-5.3); Red Cell Distribution Width 13.1 % (12.1-15.1)
[2020-12-25 06:21] LABS: Anion Gap 14.3 (5-19); Blood Urea Nitrogen 23 mg/dL (6-20); Carbon Dioxide 20 mmol/L (22-29); Chloride 106 mmol/L (98-107); Glucose 142 mg/dL (65-115); Osmolality Calculated 288 mOsm/kg (285-295); Potassium 4.3 mmol/L (3.5-5.1); Sodium 136 mmol/L (136-145)
[2020-12-25 06:35] LABS: Slide Review Slide Review Perform
[2020-12-25] MEDS: budesonide 0.5 mg/2 mL Neb INHALATION (08:38)
[2020-12-25] MEDS: benzonatate 100 mg Capsule PO ×3 (08:42→20:11)
[2020-12-25] MEDS: ferrous gluconate 324 mg Tablet PO ×2 (08:42→17:33)
[2020-12-25] MEDS: azithromycin 250 mg Tablet 500 MG PO (08:42)
[2020-12-25] MEDS: zinc gluconate 50 mg Tablet PO (08:42)
[2020-12-25] MEDS: ascorbic acid 500 mg Tablet 1000 MG PO ×2 (08:44→17:34)
--- NOTE | 2020-12-25 08:53 | PC.CHAP ---
Pastoral Care Encounter/Spiritual Assessment Type of Contact [] Declined barrer and tacker visit [] Patient/Family/Request visit [] Outpatient visit [] Follow-up visit [] Physician referral [] Code/Alert [x] Routine visit [] Staff referral [] Actively dying [] Patient sleeping [] Family support [] [] Out of room [] Palliative care [] [] Receiving care in room [] Pre-surgical visit [] Trauma [] Long length of stay [x] ICU visit [x] Other:isolated Relational/Emotional Strength [] Patient feels connected with others/family/visitors/staff [] Distress [] Loneliness/isolation [] Abandonment Spirituality of Patient [] Person of Marlin [] Attends Bahai of their Marlin [] Believes in Prayer [] Reads Bible or Spiritism materials [] There are Spiritual issues to be addressed C S S Representative Interventions [x] Prayer [] Active listening [] Non-anxious presence [] Spiritual/emotional support [] Crisis/trauma care [] Spiritual counseling [] Bereavement support [] Provided bereavement packet [] Provided Bible/devotional materials [] Provided toy/stuffed animal, coloring book to patient or family member [] Provided Communion [] Anointing/Sawyer [] Salvation [x] Completed spiritual assessment [] Other: Impact on Illness or Injury [] Angry [] Fearful [] Anxious [] Often cries [] Exhaustion [] Unable to work [] Unable to attend judaism [] Unable to walk/stand [] Unable to read [] Unable to drive [] Unable to eat/drink [] Unable to sleep [] Unable to be with family [] Patient intubated [] Other: Summary Time spent with patient
[2020-12-25] MEDS: dexamethasone 4 mg/mL INJ 6 MG IVP (14:09)
--- NOTE | 2020-12-25 14:42 | PM.PN ---
Subjective Subjective: Interval history: Patient was seen and examined this morning, overall he is doing better today, supplemental oxygen requirement is going down. Medications: Reviewed: Yes Vitals/I&O/Wt Last Vital Signs Temp 98.4 F 12/24/20 15:00 Pulse 61 12/25/20 14:00 Resp 18 12/25/20 11:52 BP 114/87 12/25/20 12:00 Pulse Ox 93 12/25/20 14:00 12/24/20 12/25/20 12/25/20 22:59 06:59 14:59 Intake Total 400 / 1000 600 / 600 Output Total 750 / 1250 500 / 500 Balance 400 / 500 -750 / -250 100 / 100 Weight last 48 hrs Weight 111.584 kg Weight 112.491 kg Physical Exam Const: COMMON NORMALS: patient oriented x3 HENMT: COMMON NORMALS: normocephalic and atraumatic HEAD & SCALP: normocephalic and atraumatic Chest: CHEST: Yes Symmetrical chest wall rise Resp: COMMON NORMALS: clear to auscultation bilaterally AUSCULTATION: clear to auscultation bilaterally Cardio: COMMON NORMALS: regular rate, regular rhythm, S1 normal heart sound present, S2 normal heart sound present, No gallops present (Cardio), No murmurs present (Cardio), No rub (Cardio) and Peripheral pulses 2+ throughout RATE: regular rate RHYTHM: regular rhythm HEART SOUNDS: S1 normal heart sound present and S2 normal heart sound present PERIPHERAL PULSES: Peripheral pulses 2+ throughout GI: COMMON NORMALS: Normal to inspection, nondistended, normoactive bowel sounds present, Soft to palpation, non-tender, No hepatosplenomegaly present and no masses AUSCULTATION: Yes normoactive bowel sounds PALPATION: Yes Soft to palpation and Yes No hepatosplenomegaly present RECTAL EXAM: Yes deferred Extremity: COMMON NORMALS: no clubbing, cyanosis or edema and no pedal edema Neuro: COMMON NORMALS: patient oriented x3 Data : 12/25/20 05:14 12/25/20 05:14 Micro: Microbiology 12/19/20 11:23 Blood Culture - Final Blood NO GROWTH AFTER 5 DAYS 12/19/20 11:15 Blood Culture - Final Blood NO GROWTH AFTER 5 DAYS 12/18/20 11:13 Blood Culture - Final Blood Coagulase negativ staphylococc A&P Assessment and plan (1) ARDS (adult respiratory distress syndrome): Status: Acute (2) COVID-19: Status: Acute (3) Bradycardia: Status: Acute Additional A&P Information Severe ARDS 2/2 Covid pneumonia: Improving. CTA negative for PE. Trend inflammatory markers (D-dimer, ESR , CRP , ferritin, fibrinogen ) Procalcitonin, urine Legionella, bacterial antigen negative. Sputum culture awaited. Blood culture preliminary showing 1 out of 4 bottles positive for coag negative staph. Most likely contaminant. Less likely bacterial superadded infection. Repeat blood cultures have remained negative. Monitor ABG Monitor x-ray chest Completed remdesivir 5-day course. 1 dose Actemra on December 19. Dexamethasone 6 mg IV daily. Lovenox 110 mg subcu every 12 hours. We will switch him to Eliquis 2.5 mg every 12 hours daily Initially on IV vancomycin as per creatinine clearance.It was discontinue on 12/22 Strated on Ceftriaxone continue azithromycin Continue vitamin C, zinc. Tessalon Perles. Continue with DuoNebs every 4 hours budesonide twice daily as patient is on heated high flow. Pulmonary toilet with incentive spirometry and flutter valve. Lasix as needed to keep net negative Los Fluid restriction up to 1800 cc. Monitor I/O Asymptomatic sinus Bradycardia: Echocardiogram shows a possible normal LV size, possibly normal LV functions, poor echocardiogram window. We will continue to monitor. Full code. Regular diet. DVT prophylaxis on Lovenox Attestations Medical Necessity Statement*: Patient need to be in the hospital for the management of respiratory failure secondary to Covid pneumonia. Coding Level of Care Code Acute Child Welfare Specialist for [facility] Diagnoses ARDS (adult respiratory distress syndrome) J80 COVID-19 U07.1 Bradycardia R00.1
[2020-12-25] MEDS: cefTRIAXone 1,000 MG in sodium chloride 0.9% (plus) 50 ML 100 MG IV (15:47)
[2020-12-25] MEDS: apixaban 5 mg Tablet 2.5 MG PO (20:11)
[2020-12-26] VITALS (47 sets, daily range): BP systolic 94–146; BP diastolic 52–102; PULSE 50–106; RESP 20–22; TEMP 36.7–37.1; O2SAT 88–94
[2020-12-26] MEDS: famotidine 20 mg/2 mL INJ IVP ×2 (04:01→17:42)
[2020-12-26 04:20] LABS: Basophils # 0.1 10^3/uL (0.0-0.1); Basophils % 0.5 %; Hematocrit 43.8 % (42.0-52.0); Hemoglobin 14.7 g/dL (11.7-16.6); Lymphocytes # 1.2 10^3/uL (0.8-4.8); Lymphocytes % 6.2 %; Mean Corpuscular HGB Conc 33.6 g/dL (30.0-36.0); Mean Corpuscular Hemoglobin 32.7 pg (28.0-34.0); Mean Corpuscular Volume 97.6 fL (80-94); Monocytes # 0.9 10^3/uL (0.2-0.9); Monocytes % 4.9 %; Neutrophils # 15.66 10^3/uL (1.8-7.7); Neutrophils % 81.9 %; Nucleated Red Blood Cells % 0 %; Platelet Count 351 10^3/cmm (130-400); Red Blood Count 4.49 10^6/uL (4.1-5.3); Red Cell Distribution Width 12.8 % (12.1-15.1); White Blood Count 19.1 10^3/uL (4.0-10.0)
[2020-12-26 04:39] LABS: Anion Gap 15.2 (5-19); Blood Urea Nitrogen 25 mg/dL (6-20); Carbon Dioxide 21 mmol/L (22-29); Chloride 104 mmol/L (98-107); Glomerular Filtration Rate 121.4 mL/min (90-130); Glucose 210 mg/dL (65-115); Osmolality Calculated 293 mOsm/kg (285-295); Potassium 4.2 mmol/L (3.5-5.1); Sodium 136 mmol/L (136-145)
[2020-12-26 05:01] LABS: Slide Review Slide Review Perform
[2020-12-26] MEDS: ferrous gluconate 324 mg Tablet PO ×2 (07:57→17:42)
--- NOTE | 2020-12-26 10:18 | PM.PN ---
Subjective Subjective: Interval history: Patient was seen and examined this morning, overall he is doing better today, no acute events overnight. Medications: Reviewed: Yes Vitals/I&O/Wt Last Vital Signs Temp 98.0 F 12/26/20 04:00 Pulse 60 12/26/20 08:42 Resp 22 H 12/26/20 08:42 BP 124/74 12/26/20 08:00 Pulse Ox 94 12/26/20 08:42 12/25/20 12/26/20 12/26/20 22:59 06:59 14:59 Intake Total 350 / 950 260 / 260 Output Total 1000 / 1500 700 / 2200 600 / 600 Balance -650 / -550 -700 / -1250 -340 / -340 Weight last 48 hrs Weight 110.495 kg Weight 111.584 kg Physical Exam Const: COMMON NORMALS: patient oriented x3 HENMT: COMMON NORMALS: normocephalic and atraumatic HEAD & SCALP: normocephalic and atraumatic Chest: CHEST: Yes Symmetrical chest wall rise Resp: COMMON NORMALS: clear to auscultation bilaterally EFFORT & INSPECTION: Yes symmetric chest movement AUSCULTATION: clear to auscultation bilaterally OTHER: Minimal fine basal bilateral crackles, no wheezing no rhonchi Cardio: COMMON NORMALS: regular rate, regular rhythm, S1 normal heart sound present, S2 normal heart sound present, No gallops present (Cardio), No murmurs present (Cardio), No rub (Cardio) and Peripheral pulses 2+ throughout RATE: regular rate RHYTHM: regular rhythm HEART SOUNDS: S1 normal heart sound present and S2 normal heart sound present PERIPHERAL PULSES: Peripheral pulses 2+ throughout GI: COMMON NORMALS: Normal to inspection, nondistended, normoactive bowel sounds present, Soft to palpation, non-tender, No hepatosplenomegaly present and no masses AUSCULTATION: Yes normoactive bowel sounds PALPATION: Yes Soft to palpation and Yes No hepatosplenomegaly present RECTAL EXAM: Yes deferred Extremity: COMMON NORMALS: no clubbing, cyanosis or edema and no pedal edema Neuro: COMMON NORMALS: patient oriented x3 Data : 12/26/20 03:39 12/26/20 03:39 A&P Assessment and plan (1) ARDS (adult respiratory distress syndrome): Status: Acute (2) COVID-19: Status: Acute (3) Bradycardia: Status: Acute Additional A&P Information Severe ARDS 2/2 Covid pneumonia: Improving. CTA negative for PE. Trend inflammatory markers (D-dimer, ESR , CRP , ferritin, fibrinogen ) Procalcitonin, urine Legionella, bacterial antigen negative. Sputum culture awaited. Blood culture preliminary showing 1 out of 4 bottles positive for coag negative staph. Most likely contaminant. Less likely bacterial superadded infection. Repeat blood cultures have remained negative. Monitor ABG Monitor x-ray chest Completed remdesivir 5-day course. 1 dose Actemra on December 19. Dexamethasone 6 mg IV daily. Lovenox 110 mg subcu every 12 hours. We will switch him to Eliquis 2.5 mg every 12 hours daily Initially on IV vancomycin as per creatinine clearance.It was discontinue on 12/22 Strated on Ceftriaxone continue azithromycin Continue vitamin C, zinc. Tessalon Perles. Continue with DuoNebs every 4 hours budesonide twice daily as patient is on heated high flow. Pulmonary toilet with incentive spirometry and flutter valve. Lasix as needed to keep net negative Los Fluid restriction up to 1800 cc. Monitor I/O Asymptomatic sinus Bradycardia: Echocardiogram shows a possible normal LV size, possibly normal LV functions, poor echocardiogram window. We will continue to monitor. Full code. Regular diet. DVT prophylaxis on Lovenox Attestations Medical Necessity Statement*: Patient needs to be in hospital for the management of ARDS due to COVID PNA Coding Level of Care Code Acute Mechanical Manufacturing Technician for [facility] Diagnoses ARDS (adult respiratory distress syndrome) J80 COVID-19 U07.1 Bradycardia R00.1
[2020-12-26] MEDS: zinc gluconate 50 mg Tablet PO (14:17)
[2020-12-26] MEDS: azithromycin 250 mg Tablet 500 MG PO (14:18)
[2020-12-26] MEDS: apixaban 5 mg Tablet 2.5 MG PO ×2 (14:18→19:49)
[2020-12-26] MEDS: benzonatate 100 mg Capsule PO ×2 (14:18→19:49)
[2020-12-26] MEDS: ascorbic acid 500 mg Tablet 1000 MG PO ×2 (14:18→17:58)
[2020-12-26] MEDS: dexamethasone 4 mg/mL INJ 6 MG IVP (14:19)
[2020-12-26] MEDS: cefTRIAXone 1,000 MG in sodium chloride 0.9% (plus) 50 ML 100 MG IV (17:41)
[2020-12-27] VITALS (22 sets, daily range): BP systolic 90–123; BP diastolic 61–81; PULSE 47–93; RESP 20–62; TEMP 36.6–36.9; O2SAT 82–95
[2020-12-27] MEDS: famotidine 20 mg/2 mL INJ IVP (02:59)
[2020-12-27 05:09] LABS: Basophils # 0.1 10^3/uL (0.0-0.1); Basophils % 0.6 %; Eosinophils % 0.1 %; Hematocrit 47.2 % (42.0-52.0); Hemoglobin 15.7 g/dL (11.7-16.6); Lymphocytes # 1.3 10^3/uL (0.8-4.8); Lymphocytes % 7.2 %; Mean Corpuscular HGB Conc 33.3 g/dL (30.0-36.0); Mean Corpuscular Hemoglobin 32.5 pg (28.0-34.0); Mean Corpuscular Volume 97.7 fL (80-94); Mean Platelet Volume 9.9 fL (7.4-10.4); Monocytes % 5.7 %; Neutrophils # 14.78 10^3/uL (1.8-7.7); Neutrophils % 81.7 %; Nucleated Red Blood Cells % 0 %; Platelet Count 337 10^3/cmm (130-400); Red Blood Count 4.83 10^6/uL (4.1-5.3); Red Cell Distribution Width 12.9 % (12.1-15.1); White Blood Count 18.1 10^3/uL (4.0-10.0)
[2020-12-27 05:25] LABS: Anion Gap 16.2 (5-19); Blood Urea Nitrogen 26 mg/dL (6-20); Calcium 8.4 mg/dL (8.5-10.5); Carbon Dioxide 21 mmol/L (22-29); Chloride 102 mmol/L (98-107); Glomerular Filtration Rate 121.4 mL/min (90-130); Glucose 143 mg/dL (65-115); Osmolality Calculated 287 mOsm/kg (285-295); Potassium 4.2 mmol/L (3.5-5.1); Sodium 135 mmol/L (136-145)
[2020-12-27] MEDS: ferrous gluconate 324 mg Tablet PO (08:03)
[2020-12-27] MEDS: zinc gluconate 50 mg Tablet PO (08:03)
[2020-12-27] MEDS: ascorbic acid 500 mg Tablet 1000 MG PO (08:03)
[2020-12-27] MEDS: benzonatate 100 mg Capsule PO (08:03)
[2020-12-27] MEDS: apixaban 5 mg Tablet 2.5 MG PO (08:03)
--- NOTE | 2020-12-27 12:59 | PM.DCS ---
Discharge Providers Date of Admission: 12/18/20 13:55 Date of Discharge: December 27, 2020 Attending Provider at Admission: Tyler Reno MD Attending Provider at Discharge: David Pappas MD Diagnoses at Discharge Discharge Diagnosis (1) ARDS (adult respiratory distress syndrome): Status: Acute (2) COVID-19: Status: Acute (3) Bradycardia: Status: Acute Reason for Visit Reason for Visit: COVID+ O2 LOW 86 Hospital Course Hospital Course 45 year old male no severe past medical history came to the ER after having difficulty in breathing for last 1 week.On admission Patient stated that he had cough, runny nose and fever on and off for last 3 weeks.He was worked up for the above mentioned complaint and was found to be Covid positive, received a dose of BAM in the ER unfortunately within 30 minutes patient started getting more respiratory distress going up to 3 L of nasal cannula. On my examination. He was admitted for the management of acute hypoxic respiratory failure secondary to Covid pneumonia.Hospital course was complicated by development of severe ARDS. During the hospital stay he he was managed as per the Covid protocol. CTA chest negative for PE. Patchy scattered nonspecific ground-glass airspace disease throughout both lungs. Echocardiogram shows a possible normal LV size, possibly normal LV functions, poor echocardiogram window. We will continue to monitor. Inflammatory markers were trended trend (D-dimer, ESR , CRP , ferritin, fibrinogen ) Procalcitonin, urine Legionella, bacterial antigen negative. Blood culture preliminary showing 1 out of 4 bottles positive for coag negative staph. Most likely contaminant. Less likely bacterial superadded infection. Repeat blood cultures have remained negative. Serial ABG, x-ray chest was monitored, Completed remdesivir 5-day course. 1 dose Actemra on December 19. Completed 10 days course of dexamethasone 6 mg IV daily. Was on Lovenox 110 mg subcu every 12 hours. At the time of discharge he was given Eliquis 2.5 mg every 12 hours daily for 14 days.He was kept on broad-spectrum antibiotics. He was on vitamin C, zinc Tessalon Perles, Robitussin, duo nebs, incentive spirometer flutter valve, Lasix as needed.Given the fact that during the hospital stay his supplemental oxygen requirement was very high, he was kept on heated high flow, but gradually with improvement in his overall condition the supplemental oxygen requirement kept going down, at the time of discharge he qualified for 4 L oxygen through nasal cannula. During the hospital stay he was also managed for asymptomatic sinus bradycardia likely part of the COVID viral syndrome.Patient responded to the above medical management well and is being discharged in stable condition to home. Physical Exam Const: COMMON NORMALS: patient oriented x3 HENMT: COMMON NORMALS: normocephalic and atraumatic HEAD & SCALP: normocephalic and atraumatic Chest: CHEST: Yes Symmetrical chest wall rise Resp: COMMON NORMALS: clear to auscultation bilaterally EFFORT & INSPECTION: Yes symmetric chest movement AUSCULTATION: clear to auscultation bilaterally Cardio: COMMON NORMALS: regular rate, regular rhythm, S1 normal heart sound present, S2 normal heart sound present, No gallops present (Cardio), No murmurs present (Cardio), No rub (Cardio) and Peripheral pulses 2+ throughout RATE: regular rate RHYTHM: regular rhythm HEART SOUNDS: S1 normal heart sound present and S2 normal heart sound present PERIPHERAL PULSES: Peripheral pulses 2+ throughout GI: COMMON NORMALS: Normal to inspection, nondistended, normoactive bowel sounds present, Soft to palpation, non-tender, No hepatosplenomegaly present and no masses AUSCULTATION: Yes normoactive bowel sounds PALPATION: Yes Soft to palpation and Yes No hepatosplenomegaly present RECTAL EXAM: Yes deferred Extremity: COMMON NORMALS: no clubbing, cyanosis or edema and no pedal edema Neuro: COMMON NORMALS: patient oriented x3 Discharge Data Data Completed and Pending: Completed Studies During Hospitalization Category Date Time Status CT angio chest PE protcl [id number] Urge nt Cat Scan 12/18/20 13:52 Completed XR chest 1V hiram ble [id number] Q48H Exams 12/19/20 06:00 Completed XR chest 1V hiram ble [id number] Q48H Exams 12/21/20 06:00 Completed XR chest 1V hiram ble [id number] Q48H Exams 12/23/20 06:00 Completed XR chest 1V hiram ble [id number] Urgent Exams 12/18/20 10:48 Completed CV. echo complete * [id number] Routine Ultrasound 12/18/20 14:26 Completed Pending at discharge Category Date Time Status Basic Metabolic P sarai AM LABS Lab 12/28/20 04:00 Ordered Basic Metabolic P sarai AM LABS Lab 12/29/20 04:00 Ordered Complete Blood Co unt w/Auto AM LABS Lab 12/28/20 04:00 Ordered Complete Blood Co unt w/Auto AM LABS Lab 12/29/20 04:00 Ordered Labs from last 24 hours 12/27/20 12/27/20 04:35 04:35 WBC 18.1 H RBC 4.83 Hgb 15.7 Hct 47.2 MCV 97.7 H MCH 32.5 MCHC 33.3 RDW 12.9 Plt Count 337 MPV 9.9 Neut % (Auto) 81.7 Lymph % (Auto) 7.2 [place] % (Auto) 5.7 Eos % (Auto) 0.1 Baso % (Auto) 0.6 Neut # (Auto) 14.78 H Lymph # (Auto) 1.3 [place] # (Auto) 1.0 H Eos # (Auto) 0.0 Baso # (Auto) 0.1 Nucleated RBC % (a uto) 0 Nucleated RBCs # 0.0 Sodium 135 L Potassium 4.2 Chloride 102 Carbon Dioxide 21 L Anion Gap 16.2 BUN 26 H Creatinine 0.7 GFR Calculation 121.4 Glucose 143 H Calculated Osmolal ity 287 Calcium 8.4 L Vitals: Last Vital Signs Temp 97.9 F 12/27/20 08:00 Pulse 78 12/27/20 11:16 Resp 23 H 12/27/20 11:00 BP 117/79 12/27/20 11:00 Pulse Ox 82 L 12/27/20 11:17 Discharge Plan Discharge Patient Disposition: Home Condition: Stable Prescriptions: New Advair Diskus 250-50 mcg/dose Blister With Device 1 puff inhalation BID.RESPIRATORY 30 Days Qty: 1 RF: 0 Vitamin C 500 mg Tablet 1,000 mg PO BID 7 Days Qty: 14 RF: 0 Eliquis 5 mg Tablet 2.5 mg PO BID@0900,2100 14 Days Qty: 30 RF: 0 Robitussin Cough-Chest Jose DM 10-200 mg capsule 1 tab-cap PO Q8H PRN (Reason: cough) Qty: 30 RF: 0 Discontinued dexamethasone 6 mg tablet 6 mg PO DAILY Qty: 5 RF: 0 Discharge Orders: Discharge Order (Routine); Ordered 12/27/20 Ordered By: David Pappas Other Ambulatory Orders: DME: Oxygen (Order) Location: None Selected Ordered By: David Pappas Referrals: Datar,Corona B, MD [Physician] - 2 weeks Dilma Ruelas FNP [Nurse Practitioner] - Discharge Diet: Regular Discharge Activity: Increase activity as tolerated Patient Instructions: Ascorbic Acid (Vitamin C) (By mouth), Antitussive/Decongestant (By mouth), Fluticasone/Salmeterol (By breathing), Apixaban (By mouth), Opioid Safety Discharge Attestations Time Spent in Discharge Care*: less than 30 min Specific Discharge Activities: educating patient, educating and/or supporting family/caregiver, discussing with pcp/other providers, discussing with supportive employment case manager/social workers/dc planners, documenting/other paperwork and evaluating patient/reviewing data Status at Discharge: Cognitive status at discharge: cognitively intact, Behavioral status at discharge: cooperative, Functional status at discharge: independent ambulation Overall status at discharge: patient is back to baseline Quality Metrics Clinical Quality Measures During this hospital stay, did patient experience: None Coding Level of Care Code Acute Chg FW DC note Diagnoses ARDS (adult respiratory distress syndrome) J80 COVID-19 U07.1 Bradycardia R00.1
== END 2020-12-27 13:53 | disposition home or self-care (01) | DRG 177 ==
LOC: ER 14:13 → MEDSURG 14:53 → ICU 15:02 → MEDSURG 20:28 → ICU 12-19 00:02
PROVIDERS: Admitting Provider Student in an Organized Health Care Education/Training Program; Emergency Provider Family Medicine; Visit Provider Internal Medicine
DX: U07.1 COVID-19 (principal); J12.82 Pneumonia due to coronavirus disease 2019; J96.01 Acute respiratory failure with hypoxia; F17.220 Nicotine dependence, chewing tobacco, uncomplicated; R00.1 Bradycardia, unspecified
CPT/HCPCS: 36415; 36600; 71045; 71275; 80048; 80051; 80053; 80061; 80202; 81001; 82330; 82436; 82550; 82728; 82805; 83036; 83540; 83550; 83605; 83615; 83735; 83880; 84133; 84145; 84300; 84443; 85007; 85025; 85378; 85384; 85651; 86140; 86403; 87040; 87070; 87205; 87449; 87641; 87804; 93005; 93306; 94640; 94664; 96365; 96367; 96372; 96375; 99291; 99292; J0696; J1100; J1650; J1940; J2270; J3262; J3370; J3490; J7030; J7626; Q0144; Q9967

== ENCOUNTER 2021-01-21 16:37 | Outpatient (CLI) | payer OTHER, SELFPAY ==
--- NOTE | 2021-01-21 17:02 | XRR_ITS ---
PROCEDURE INFORMATION: Exam: XR Chest Exam date and time: 01/21/2021 5:02 PM Age: 45 years old Clinical indication: Cough and shortness of breath; Additional info: SOB TECHNIQUE: Imaging protocol: XR of the chest. Views: 2 views. COMPARISON: CR XR chest 1V portable [id number] 12/23/2020 5:21 AM FINDINGS: Lungs: Previously noted bilateral peripheral airspace consolidations are less conspicuous on current study. Pleural spaces: Unremarkable. No pleural effusion. No pneumothorax. Heart/Mediastinum: Unremarkable. No cardiomegaly. Bones/joints: Unremarkable. XR/XR chest 2V* [id number] IMPRESSION: Previously noted bilateral peripheral airspace consolidations are less conspicuous on current study. No acute findings.
[2021-01-21 17:31] LABS: ABG PCO2 39.5 mmHg (35-45); ABG PH Result 7.41 (7.35-7.45); Alveolar-Arterial Oxygen Gradi 9.6 mmHg (5-10); Arterial Blood Gas Hematocrit 42.8 % (42-52); Base Excess ABG 0.2 mmol/L (-2.0-2.0); Blood Gas Allen Test Pos; Blood Gas Operator Identificat glc; Blood Gas Sample Site Radial, right; Blood Gas Sample Type Arterial; Carboxyhemoglobin 0.6 %THgb (0.4-20.1); HCO3 ABG 24.8 mmol/L (22-26); HGB O2 Sat 99.8 % (95-100); Ionized Calcium Level - ABG 1.2 mmol/L (1.1-1.4); Methemoglobin < 0.0 % (0.4-1.5); Oxygen Device NC; Oxygen Saturation ABG 99.7; Potassium Level - ABG 4.1 mmol/L (3.5-5.0)
[2021-01-21 17:57] LABS: Alanine Aminotransferase 19 U/L (0-41); Albumin Level 3.8 g/dL (3.5-5.2); Alkaline Phosphatase 48 IU/L (40-130); Anion Gap 11.5 (5-19); Aspartate Amino Transferase 16 U/L (0-40); Blood Urea Nitrogen 16 mg/dL (6-20); Carbon Dioxide 27 mmol/L (22-29); Chloride 107 mmol/L (98-107); Globulin 2.7 g/dL (1.3-4.6); Glomerular Filtration Rate 104.1 mL/min (90-130); Glucose 77 mg/dL (65-115); Magnesium 2.2 mg/dL (1.7-2.3); Osmolality Calculated 292 mOsm/kg (285-295); Potassium 4.5 mmol/L (3.5-5.1); Sodium 141 mmol/L (136-145); Total Bilirubin 0.4 mg/dL (0.15-1.2); Total Protein 6.5 g/dL (6.6-8.7)
== END 2021-01-21 16:38 | disposition home or self-care (01) ==
LOC: RAD 16:50
PROVIDERS: PCP Nurse Practitioner Family; Visit Provider Internal Medicine Pulmonary Disease
DX: R06.02 Shortness of breath (principal); G93.3 Postviral and related fatigue syndromes; U07.1 COVID-19
CPT/HCPCS: 71046; 80051; 80053; 82330; 82805; 83735

== ENCOUNTER 2021-02-02 08:10 | Outpatient (CLI) | payer OTHER, SELFPAY ==
--- NOTE | 2021-02-02 08:30 | CT_ITS ---
WS: [id number] CT CHEST TECHNIQUE: Noncontrast CT of the chest with coronal and sagittal reformatted images. CLINICAL INFORMATION: resolution of pneumonia COMPARISON: CTA chest December 18, 2020 DLP: 1102.[address] scans at [facility] use at least one of these dose optimization techniques: automat ed exposure control; mA and/or kV adjustment per patient size (includes targeted exams where dose is matched to clinical indication); or iterative reconstruction. FINDINGS: Hazy bilateral groundglass infiltrates compatible with COVID 19 Pneumonia. This is persistent but has improved compared to December 18, 2020. No focal consolidation or pleural fluid. No mediastinal or hilar lymphadenopathy. Coronary calcification. Normal GE junction. No axillary lymphadenopathy. Normal thyroid gland. Adrenal glands are normal. Mild fatty atrophy of t he pancreas. A right pericentral disc osteophyte complex T10-11 with moderate central canal stenosis and impingement on the right subarticular recess. CT/CT chest wo con [id number] IMPRESSION: 1. Hazy bilateral groundglass infiltrates throughout both lungs more prominent in the perihilar regions. This is persistent but improved since December 18, 2020. 2. No focal pneumonia or pleural fluid. 3. Moderate central canal stenosis T10-11 due to a prominent right pericentral disc osteophyte complex. Impingement right subarticular recess. This can be fu rther evaluated with thoracic and lumbar spine spine MRI
== END 2021-02-02 08:11 | disposition home or self-care (01) ==
PROVIDERS: PCP Nurse Practitioner Family; Visit Provider Internal Medicine Pulmonary Disease
DX: J98.4 Other disorders of lung (principal); R91.8 Other nonspecific abnormal finding of lung field; M48.04 Spinal stenosis, thoracic region; M25.78 Osteophyte, vertebrae
CPT/HCPCS: 71250

== ENCOUNTER → 2021-03-30 09:53 | Outpatient (BNVA) | payer SELFPAY | PROVIDERS: PCP Nurse Practitioner Family; Visit Provider Internal Medicine Pulmonary Disease | DX: Z01.812 Encounter for preprocedural laboratory examination (principal); Z20.822 Contact with and (suspected) exposure to COVID-19 | CPT/HCPCS: 87635 ==

== ENCOUNTER 2021-04-02 08:28 | Outpatient (CLI) | payer OTHER, SELFPAY ==
--- NOTE | 2021-04-02 10:19 | PFTS_ITS ---
Date of Study:04/02/21 Date of Dictation: 04/07/21 MECHANICS: Postbronchodilator forced vital capacity (FVC) is normal. Postbronchodilator forced expiratory volume in one second (FEV1) is moderately reduced. FEV1/FVC is reduced. There is no significant response to bronchodilators. FLOW VOLUME LOOP: Sloping of expiratory limb suggestive of airway obstruction LUNG VOLUMES: Total lung capacity (TLC) is normal. Residual volume (RV) is normal. DIFFUSING CAPACITY FOR CARBON MONOXIDE: normal . INTERPRETATION: The prebronchodilator spirometry consistent with moderate obstruction as reflected on flow volume loop. Lung volumes are normal. Gas transfer is normal. Clinical correlation recommended MTDD
== END 2021-04-02 08:29 | disposition home or self-care (01) ==
LOC: RT 08:32
PROVIDERS: PCP Nurse Practitioner Family; Visit Provider Internal Medicine Pulmonary Disease
DX: U09.9 Post COVID-19 condition, unspecified (principal)
CPT/HCPCS: 94060; 94618; 94726; 94729; J7611

== ENCOUNTER 2021-06-22 13:06 | Outpatient (CLI) | payer OTHER, SELFPAY ==
--- NOTE | 2021-06-22 13:30 | CT_ITS ---
WS: [id number] CT CHEST TECHNIQUE: Noncontrast CT of the chest with coronal and sagittal reformatted images. CLINICAL INFORMATION: Assess resolution of COVID COMPARISON: CT February 02, 2021 DLP: 1087.[address] scans at [facility] use at least one of these dose optimization techniques: automated e xposure control; mA and/or kV adjustment per patient size (includes targeted exams where dose is matc hed to clinical indication); or iterative reconstruction. FINDINGS: Previously described hazy bilateral groundglass infiltrates have improved and nearly resolv ed compared to February 02, 2021. Mild residual hazy subpleural and right upper lobe ground glass infil trates. No evidence of progression. No focal pneumonia or pleural fluid. Coronary calcification. No mediastinal or hilar lymphadenopathy. No axillary lymphadenopathy. Normal GE junction. Adrenal glands are normal. Hypertrophic changes thoracic spine. Moderate central canal stenosis T10-11 due to a prominent right pericentral disc osteophyte complex u nchanged. CT/CT chest wo con [id number] IMPRESSION: 1. Continued improvement of the hazy bilateral groundglass infiltrates with re sidual subpleural and right upper lobe faint infiltrates. 2. No focal pneumonia or pleural fluid. 3. No mediastinal or hilar lymphadenopathy. 4. No other significant changes from previous.
== END 2021-06-22 13:07 | disposition home or self-care (01) ==
PROVIDERS: PCP Nurse Practitioner Family; Visit Provider Internal Medicine Pulmonary Disease
DX: B94.8 Sequelae of other specified infectious and parasitic diseases (principal)
CPT/HCPCS: 71250

== ENCOUNTER → 2021-08-17 08:05 | Outpatient (BNVA) | payer OTHER, SELFPAY | PROVIDERS: PCP Nurse Practitioner Family; Visit Provider Nurse Practitioner Family | DX: M25.50 Pain in unspecified joint (principal) | CPT/HCPCS: 85025; 85651; 86038; 86140; 86431 ==

== ENCOUNTER 2021-09-03 10:19 | Outpatient (CLI) | payer OTHER, SELFPAY ==
--- NOTE | 2021-09-03 10:46 | XR_ITS ---
WS: [id number] XR knee RT 3V* [id number] REASON FOR EXAM: M25.569 - Pain in unspecified knee FINDINGS: No fracture or focal bone lesion. The medial and lateral knee joint spaces are intact and relatively well-preserved. No significant sub chondral bony abnormality. Patellofemoral joint space is intact. Mild subchondral sclerosis with small marginal osteophytes of t he patella. Patellar quadriceps insertion enthesophyte. XR/XR knee RT 3V* [id number] IMPRESSION: Mild osteoarthritis involving the patellofemoral joint.
--- NOTE | 2021-09-03 10:46 | XR_ITS ---
WS: [id number] XR knee LT 3V* [id number] REASON FOR EXAM: M25.569 - Pain in unspecified knee FINDINGS: No fracture or focal bone lesion. Medial and lateral knee joint spaces are intact and well preserved. No significant subchondral bone a bnormality. Patellofemoral joint space is intact. Mild subchondral sclerosis and osteophytic spurring of the horan lla. Patellar quadriceps insertion enthesophyte. XR/XR knee LT 3V* [id number] IMPRESSION: Mild osteoarthritis of the patellofemoral joint.
== END 2021-09-03 10:20 | disposition home or self-care (01) ==
PROVIDERS: PCP Nurse Practitioner Family; Visit Provider Nurse Practitioner Family
DX: M17.0 Bilateral primary osteoarthritis of knee (principal)
CPT/HCPCS: 73562

== ENCOUNTER 2021-09-03 11:51 | Outpatient (RCR) | payer OTHER, SELFPAY | END 2021-09-17 23:59 | disposition home or self-care (01) | LOC: PULRHB 11:51 | PROVIDERS: PCP Nurse Practitioner Family; Visit Provider Internal Medicine Pulmonary Disease | DX: R06.02 Shortness of breath (principal) | CPT/HCPCS: 94626 ==

== ENCOUNTER 2021-09-18 06:00 | Outpatient (RCR) | payer OTHER, SELFPAY | END 2021-10-17 23:59 | disposition home or self-care (01) | LOC: PULRHB 06:00 | PROVIDERS: PCP Nurse Practitioner Family; Visit Provider Internal Medicine Pulmonary Disease | DX: R06.02 Shortness of breath (principal) | CPT/HCPCS: 94626 ==

== ENCOUNTER 2021-10-05 12:00 | Outpatient (CLI) | payer OTHER, SELFPAY | END 2021-10-05 12:01 | disposition home or self-care (01) | LOC: SLEEP 10-07 16:21 | PROVIDERS: PCP Nurse Practitioner Family; Visit Provider Nurse Practitioner Family | DX: G47.33 Obstructive sleep apnea (adult) (pediatric) (principal) | CPT/HCPCS: G0399 ==

== ENCOUNTER → 2021-12-28 10:57 | Outpatient (BNVA) | payer OTHER, SELFPAY | PROVIDERS: PCP Nurse Practitioner Family; Visit Provider Internal Medicine Pulmonary Disease | DX: R53.83 Other fatigue (principal); G47.33 Obstructive sleep apnea (adult) (pediatric); B94.8 Sequelae of other specified infectious and parasitic diseases | CPT/HCPCS: 36415; 82652; 83036; 84443; 84481 ==

== ENCOUNTER → 2023-01-10 13:34 | Outpatient (BNVA) | payer OTHER, SELFPAY | PROVIDERS: PCP Nurse Practitioner Family; Visit Provider Nurse Practitioner Family | DX: Z11.52 Encounter for screening for COVID-19 (principal) | CPT/HCPCS: 87426 ==

== ENCOUNTER 2023-05-25 10:00 | Outpatient (CLI) | payer OTHER, SELFPAY | END 2023-05-25 10:01 | disposition home or self-care (01) | LOC: SLEEP 05-26 15:28 | PROVIDERS: PCP Nurse Practitioner Family; Visit Provider Nurse Practitioner Family | DX: U09.9 Post COVID-19 condition, unspecified (principal) | CPT/HCPCS: 94762 ==

== ENCOUNTER 2023-08-29 20:00 | Outpatient (CLI) | payer OTHER, SELFPAY | END 2023-08-29 20:01 | disposition home or self-care (01) | LOC: SLEEP 08-30 04:40 | PROVIDERS: PCP Nurse Practitioner Family; Visit Provider Nurse Practitioner Family | DX: G47.33 Obstructive sleep apnea (adult) (pediatric) (principal) | CPT/HCPCS: 95811 ==

== ENCOUNTER 2024-02-13 16:11 | Outpatient (CLI) | payer OTHER, SELFPAY ==
--- NOTE | 2024-02-13 16:35 | USCV_ITS ---
Buddy Thompson Age: 48 Gender: M : 1975 Exam Date: 02/13/2024 16:41 Ordering Phys: Reginald Teixeira MD Technologist: CT [place]am [place] [facility] [place] Indication: CHEST PAIN BP: 120 / 79 HR: 55 Rhythm: Sinus Technical Quality: Adequate MEASUREMENTS (Male / Female) Normal Values 2D ECHO LVOT Diameter 2.4 cm LV Ejection Fraction MOD 4C 62.0 % LV Ejection Fraction MOD 2C 54.9 % LV Ejection Fraction 2C AL 55.3 % LA Diameter 3.3 cm RA Systolic Volume 4C AL 58.9 ml RA Systolic Volume 4C MOD 58.1 ml LA Sys Volume AL 80.3 cm cubed LA Sys Volume Index AL 32.6 cm cubed/m squared Aorta at Sinotubular Diameter 2.8 cm M-MODE LA Ao Ratio MM 1.1 AV Cusp Separation MM 2.6 cm DOPPLER AV Peak Velocity 126.0 cm/s LVOT Peak Velocity 97.0 cm/s AV Area Cont Eq vti 3.9 cm squared AV Area Cont Eq pk 3.4 cm squared MV Peak Velocity 88.0 cm/s MV Area PHT 3.4 cm squared Mitral E to A Ratio 1.5 TR Peak Velocity 161.0 cm/s TR Peak Gradient 10.4 mmHg TV Peak E Velocity 69.0 cm/s Right Atrial Pressure 3.0 mmHg Pulmonary Artery Systolic Pressu 13.4 mmHg PV Peak Velocity 90.0 cm/s FINDINGS Left Ventricle Left ventricle is normal size. LV systolic function is normal with EF of 55 to 60%. No regional wall motion abnormalities are seen. Right Ventricle The right ventricle is normal in size and function. Right Atrium The right atrium is normal in size. Left Atrium Dilated Mitral Valve Structurally normal mitral valve. There is mild mitral regurgitation. Aortic Valve Structurally normal aortic valve. There is no aortic stenosis. Tricuspid Valve Mild tricuspid regurgitation. Insufficient TR jet to calculate RVSP. Pulmonic Valve Not well-visualized. Pericardium Normal pericardium without effusion. Aorta Normal ascending aorta dimension. IVC Not well visualized CONCLUSIONS Technically limited quality echocardiogram because of poor ultrasonic windows. LV systolic function is normal with EF 55 to 60%. Left atrial dilation. Mild mitral regurgitation Mild tricuspid regurgitation Accurate comparison with prior study not possible because of limited visualization specially on prior study. Enrique Burris MD (Electronically Signed) Final Date: 20 February 2024 17:06 S
== END 2024-02-13 16:12 | disposition home or self-care (01) ==
PROVIDERS: PCP Nurse Practitioner Family; Visit Provider Internal Medicine Pulmonary Disease
DX: U09.9 Post COVID-19 condition, unspecified (principal); I34.0 Nonrheumatic mitral (valve) insufficiency; I36.1 Nonrheumatic tricuspid (valve) insufficiency
CPT/HCPCS: 93306

== ENCOUNTER 2024-02-17 10:00 | Outpatient (CLI) | payer OTHER, SELFPAY ==
--- NOTE | 2024-02-17 10:09 | CT_ITS ---
WS: [id number] CT CHEST ANGIOGRAPHY WITH REFORMATS HISTORY: POST COVID 19 CONDITION TECHNIQUE: Contiguous axial images are obtained through the chest during arterial injection of intrav enous contrast. Images are reconstructed to evaluate the pulmonary arteries. MIP imaging also reviewe d. All CT scans at [facility] use at least one of these dose optimization techniques: automat ed exposure control; mA and/or kV adjustment per patient size (includes targeted exams where dose is matched to clinical indication); or iterative reconstruction. CONTRAST: Omnipaque 350; 85 mL IV. DLP: 526.06 mGy.cm COMPARISON: 06/22/2021 Very poor inspiratory effort resulting in volume loss at each lung. There is hazy attenuation bilater ally which is in part due to the expiratory imaging. Additional areas of decreased attenuation within the lungs suggesting air trapping. There are few scattered peripheral nodules which were also presen t in 2020. No mass. Good opacification pulmonary arteries. No pulmonary emboli identified. Minimal atherosclerosis aorta. Pulmonary arteries not dilated. Mildly prominent lymphoid tissue. No adenopathy. Marked enlargement of the LEFT heart chambers. Cardiac enlargement appears to have progressed since t he exam of 06/22/2021. There is no pericardial effusion. Mild tricuspid regurgitation. No RIGHT heart s train. Hepatic steatosis. No adrenal mass. Mild thoracic spondylosis. No destructive bone lesions. CT/CT angio chest PE protcl [id number] IMPRESSION: 1. No pulmonary embolism. 2. Moderate LEFT heart enlargement. LEFT heart chambers appear increased in si ze since 2021. Consider evaluation by cardiology. 3. Lung volumes are decreased with poor inspiration. 4. Mosaic attenuation. Consider air-trapping and/or hypersensitivity pneumonia . 5. Mild tricuspid regurgitation. 6. No change in the pulmonary nodules since 2020.
[2024-02-17] MEDS: iohexol 350 mg/mL 500 mL Btl (per mL) IV (12:08)
== END 2024-02-17 10:04 | disposition home or self-care (01) ==
PROVIDERS: PCP Nurse Practitioner Family; Visit Provider Internal Medicine Pulmonary Disease
DX: I51.7 Cardiomegaly (principal); R94.2 Abnormal results of pulmonary function studies; I36.1 Nonrheumatic tricuspid (valve) insufficiency
CPT/HCPCS: 71275; Q9967

== ENCOUNTER → 2024-03-05 15:26 | Outpatient (BNVA) | payer OTHER, SELFPAY | PROVIDERS: PCP Nurse Practitioner Family; Visit Provider Internal Medicine Cardiovascular Disease | DX: U09.9 Post COVID-19 condition, unspecified (principal); R00.1 Bradycardia, unspecified | CPT/HCPCS: 93005 ==

== ENCOUNTER 2024-05-08 07:30 | Day surgery (SDC) | payer OTHER, SELFPAY ==
[2024-05-08 07:42] VITALS: BP 108/77; PULSE 54; RESP 16; TEMP 36.5; O2SAT 97; BMI 33.9
[2024-05-08] MEDS: sodium chloride 0.9% 1,000 ML 30 ML IV (07:46)
--- NOTE | 2024-05-08 08:30 | P.ANESASSM_ITS ---
Pre-Anesthetic Assessment Height/Weight: Height 1.83 m Weight 113.398 kg Temp Pulse Resp BP Pulse Ox O2 Del Method 97.7 F 54 L 16 108/77 97 Room Air 05/08/24 07:42 05/08/24 07:42 05/08/24 07:42 05/08/24 07:42 05/08/24 07:42 05/08/24 07:42 Preop Diagnosis: Screening Operation Date: 05/08/24 08:45 Proposed Procedures p Colonoscopy 18493, G0121, Z12.11(Not Applicable) - Darryl Brand MD Familial anesthetic complications: None Was Beta Eder taken within 24 hours: N/A Was Clonidine taken within 24 hours: N/A Last intake: Intake Last Liquid Date 05/07/24 Last Liquid Time 22:00 Last Solid Date 05/06/24 Last Solid Time 19:00 Social Alcohol (Occ.) and Tobacco (Chew) Exam alert, oriented x 3, clear to auscultation bilaterally and regular rate & rhythm Airway Submandibular: within normal limits Dentition: full History/ROS No significant history except as noted and No significant complaints Pulmonary Exertional Dyspnea and Sleep Apnea Long COVID CV/HEM Murmur CONCLUSIONS Technically limited quality echocardiogram because of poor ultrasonic windows. LV systolic function is normal with EF 55 to 60%. Left atrial dilation. Mild mitral regurgitation Mild tricuspid regurgitation Accurate comparison with prior study not possible because of limited visualization specially on prior study. None reported Hepatic None reported GI None reported Metabolic Hyperlipidemia and Morbid Obesity [facility] [place] None reported Neuropsych None reported Anesthetic Plan ASA status: 3 Anesthesia: Anesthesia Evaluation, General and MAC Risk of > 500 ml blood loss (7ml/kg in children): No Medications/Allergies Home Medications Medication Instructions Recorded Confirmed Last Taken Type oxygen #1 ea 06/03/23 05/08/24 Unknown Rx oxygen #1 ea 06/21/23 05/08/24 Unknown Rx cpap #1 ea 09/01/23 05/08/24 Unknown Rx cpap machine and Supplies #1 ea 09/09/23 05/08/24 Unknown Rx loratadine 10 mg tablet (Claritin) 10 mg PO DAILY PRN Allergy Symptoms 02/17/24 05/08/24 Unknown History rosuvastatin 5 mg tablet 5 mg PO DAILY 05/07/24 05/08/24 05/07/24 History Allergies Allergy/AdvReac Type Severity Reaction Status Date / Time No Known Allergies Allergy Verified 05/03/24 08:17 Current Medications Generic Name Dose Route Start Last Admin Trade Name Freq PRN Reason Stop Dose Admin Sodium Chloride 1,000 mls @ 30 mls/hr 05/08/24 07:45 05/08/24 07:46 Sodium Chloride 0.9% IV 30 mls/hr .Q24H CONNER Administration PFSH Anesthesia Medical History ARDS (adult respiratory distress syndrome) Bradycardia No significant past medical history Hypoxia Dyspnea COVID-19 Surgical History No significant past surgical history Family History Denies family history of CAD (coronary artery disease) Cancer Social History Smoking and tobacco/nicotine status: never used tobacco/nicotine Alcohol intake: never Substance/Drug Use: never Household members: spouse Housing: House Data Anesthesia Cardiac Studies: Echocardiogram 02/13/24 Cardiac Event Monitor 03/02/21
--- NOTE | 2024-05-08 09:26 | W.PM.OPSFHP ---
Same Day Surgery H&P Indication for Procedure/HPI DATE OF PROCEDURE: May 08, 2024 CHIEF COMPLAINT/INDICATIONFOR SURGICAL PROCEDURE: screening colonoscopy PREOP DIAGNOSIS: Screening PLANNED PROCEDURE: Operation Date: 05/08/24 08:45 Proposed Procedures p Colonoscopy 36471, G0121, Z12.11(Not Applicable) - Darryl Brand MD Medications/Allergies* Home Medications Medication Instructions Recorded Confirmed Type loratadine 10 mg tablet (Claritin) 10 mg PO DAILY PRN Allergy Symptoms 02/17/24 05/08/24 History rosuvastatin 5 mg tablet 5 mg PO DAILY 05/07/24 05/08/24 History Allergies/Adverse Reactions Allergy/AdvReac Type Severity Reaction Status Date / Time No Known Allergies Allergy Verified 05/03/24 08:17 Current Medications: Generic Name Dose Route Start Last Admin Trade Name Freq PRN Reason Stop Dose Admin Sodium Chloride 1,000 mls @ 30 mls/hr 05/08/24 07:45 05/08/24 07:46 Sodium Chloride 0.9% IV 30 mls/hr .Q24H CONNER Administration Pertinent History/Comorbid Conditions* Medical History (Updated 02/03/24 @ 16:54 by JOHANA Montalvo) ARDS (adult respiratory distress syndrome) Bradycardia No significant past medical history Hypoxia Dyspnea COVID-19 Surgical History (Updated 12/18/20 @ 15:06 by Tyler Reno MD) No significant past surgical history Family History (Updated 12/18/20 @ 15:06 by Tyler Reno MD) Denies family history of CAD (coronary artery disease) Cancer Social History Smoking and tobacco/nicotine status: never used tobacco/nicotine Alcohol intake: never Substance/Drug Use: never Household members: spouse Housing: House Pertinent Exam Findings alert, oriented x 3, clear to auscultation bilaterally, regular rate & rhythm and procedure specific exam findings Abdomen soft, nt, nd Recommendations Surgery/Procedure today Coding Level of Care Code Acute Code for Chg Fwd
[2024-05-08 10:09] VITALS: BP 131/86; PULSE 68; RESP 18; TEMP 36.2; O2SAT 97
[2024-05-08 10:19] VITALS: BP 140/71; PULSE 54; RESP 18; TEMP 36.6; O2SAT 100
--- NOTE | 2024-05-08 10:40 | ANE.PACU2 ---
Inpatient post-anesthesia follow up: Airway intact: Yes Vital signs: Temperature 97.9 F Pulse Rate 54 Respiratory Rate 18 Blood Pressure 140/71 Pulse Oximetry 100 Oxygen Delivery Me thod Room Air Oxygen Flow Rate Fraction of Inspir ed Oxygen Hydration adequate: Yes Nausea and vomiting: No Pain level: 1 Mental status: Baseline
== END 2024-05-08 10:40 | disposition home or self-care (01) ==
PROVIDERS: PCP Nurse Practitioner Family; Visit Provider Student in an Organized Health Care Education/Training Program
PROC: 0DJD8ZZ Inspection of Lower Intestinal Tract, Via Natural or Artificial Opening Endoscopic (ICD-10-PCS; CPT 45378; principal; 2024-05-08 08:45)
DX: Z12.11 Encounter for screening for malignant neoplasm of colon (principal); Z86.16 Personal history of COVID-19; D12.2 Benign neoplasm of ascending colon; F17.220 Nicotine dependence, chewing tobacco, uncomplicated; E78.5 Hyperlipidemia, unspecified; E66.01 Morbid (severe) obesity due to excess calories; Z68.33 Body mass index [BMI] 33.0-33.9, adult
CPT/HCPCS: 45380; 88305; J2704; J7030

== ENCOUNTER 2025-05-14 10:51 | Outpatient (CLI) | payer OTHER, SELFPAY ==
--- NOTE | 2025-05-14 10:56 | MRR_ITS ---
PROCEDURE INFORMATION: Exam: MR Lumbar Spine Without and With Contrast Exam date and time: 05/14/2025 11:13 AM Age: 50 years old Clinical indication: Low back pain into from of RT thigh. No specific injury. No prior surg. ; Additional info: Lumbar spine pain TECHNIQUE: Imaging protocol: Magnetic resonance imaging of the lumbar spine without and with contrast. Contrast material: MULTIHANCE; Contrast volume: 20 ml; Contrast route: INTRAVENOUS (IV); COMPARISON: No relevant prior studies available. FINDINGS: Bones/joints: Transitional S1 vertebral body with a S1-S2 disc space. Moderate multilevel disc space narrowing throughout the lumbar spine. The lumbar vertebral bodies are normally aligned. The vertebral body heights are maintained. No abnormal bone enhancement. Spinal cord: The conus terminates normally at the T12/L1 level. The roots of the cauda equina are not clumped or thickened. No abnormal intrathecal enhancement. L1-L2: Broad concentric disc bulge, bilateral facet arthropathy and ligamentum flavum thickening contributing to moderate central canal stenosis. Mild right neuroforaminal narrowing. L2-L3: Broad concentric disc bulge, bilateral facet arthropathy and ligamentum flavum thickening contributing to severe central canal stenosis. Moderate bilateral neuroforaminal narrowing. L3-L4: Broad concentric disc bulge, bilateral facet arthropathy and ligamentum flavum thickening contributing to moderate to severe central canal stenosis. Moderate bilateral neuroforaminal narrowing. L4-L5: Broad concentric disc bulge, bilateral facet arthropathy and ligamentum flavum thickening contributing to moderate central canal stenosis. Moderate bilateral neuroforaminal narrowing. L5-S1: Broad concentric disc bulge, bilateral facet arthropathy and ligamentum flavum thickening contributing to mild central canal stenosis. Moderate bilateral neuroforaminal narrowing. MR/MR lumbar spine wo/w con [id number] IMPRESSION: Multilevel degenerative changes of the lumbar spine as outlined above, worst at the L2/L3 level where there is severe central canal stenosis. Consider neurosurgical/orthopedic spine consultation.
[2025-05-14] MEDS: gadobenate dimeglumine 20 mL vial IV (11:47)
== END 2025-05-14 10:52 | disposition home or self-care (01) ==
LOC: RAD 10:53
PROVIDERS: PCP Nurse Practitioner Family; Visit Provider Internal Medicine
DX: M54.50 Low back pain, unspecified (principal); M48.061 Spinal stenosis, lumbar region without neurogenic claudication; M48.07 Spinal stenosis, lumbosacral region; R90.89 Other abnormal findings on diagnostic imaging of central nervous system; M51.369 Other intervertebral disc degeneration, lumbar region without mention of lumbar back pain or lower extremity pain; M51.17 Intervertebral disc disorders with radiculopathy, lumbosacral region; M46.96 Unspecified inflammatory spondylopathy, lumbar region; M47.816 Spondylosis without myelopathy or radiculopathy, lumbar region
CPT/HCPCS: 72158